=== PATIENT | female | born 1940 | race Caucasian/White ===

== ENCOUNTER 2019-07-14 10:46 | Outpatient (CLI) | payer MEDICARE, SELFPAY ==
--- NOTE | ~2019-07-14 | XR_ITS ---
EXAMINATION: XR lumbar spine 2-3V DATE: 07/14/2019 11:10 INDICATION: Low back pain TECHNIQUE: Anteroposterior and lateral views of the lumbar spine, and cone-down lateral view of the l umbosacral junction were obtained. COMPARISON: None. FINDINGS: There are 12 degrees of lumbar dextroscoliosis. The vertebral body heights and alignment ar e maintained. There is moderate to severe loss of intervertebral disc space height at L1-2 and L2-3. Small degenerative osteophytes project from the anterior endplates of multiple vertebral bodies. Ther e is moderate to severe lower lumbar facet osteoarthritis. Phleboliths are noted in the pelvis. The b owel gas pattern is normal. IMPRESSION: 1. Moderate lumbar spondylosis without acute findings. Reviewed, dictated and finalized at location A. RER CONCRETE PAVING
== END 2019-07-14 10:47 | disposition home or self-care (01) ==
LOC: ANHIMG 10:52
PROVIDERS: PCP Family Medicine; Visit Provider Family Medicine
DX: M54.5 Low back pain (principal); M47.816 Spondylosis without myelopathy or radiculopathy, lumbar region
CPT/HCPCS: 72100

== ENCOUNTER 2020-06-25 07:45 | Outpatient (CLI) | payer MEDICARE, SELFPAY ==
[2020-06-25 07:59] LABS: Basophils Absolute Auto 0.1 K/mm3 (0.0-0.1); Basophils Percent Auto 0.8 % (0.2-1.2); Eosinophils Absolute Auto 0.3 K/mm3 (0-0.3); Eosinophils Percent Auto 4.3 % (0-4.4); Hematocrit 41.2 % (37.0-47.0); Hemoglobin 13.3 g/dL (12.0-15.0); Immature Granulocyte Absolute 0.01 K/mm3 (0.00-0.031); Immature Granulocyte Percent A 0.2 % (0-0.5); Lymphocytes Absolute Auto 1.61 K/mm3 (0.9-3.2); Lymphocytes Percent Auto 26.4 % (18.3-44.2); Mean Corpuscular HGB Conc 32.3 g/dl (32-36); Mean Corpuscular Hemoglobin 30.3 pg (26-34); Mean Corpuscular Volume 93.8 fl (80-100); Mean Platelet Volume 11.2 fl (7.4-10.4); Monocytes Absolute Auto 0.5 K/mm3 (0.1-0.6); Monocytes Percent Auto 8.7 % (2.6-8.5); Neutrophils Absolute Auto 3.6 K/mm3 (1.3-6.7); Neutrophils Percent Auto 59.6 % (45.5-73.1); Platelet Count Result 148 k/mm3 (150-375); Red Blood Count 4.39 M/mm3 (4.2-5.4); Red Cell Distribution Width 12.9 % (11.5-14.5); White Blood Count 6.1 K/mm3 (4.5-10.0)
[2020-06-25 08:55] LABS: LDL Cholesterol Direct 93 mg/dL
[2020-06-25 08:57] LABS: Erythrocyte Sedimentation Rate 16 mm/hr (0-20)
[2020-06-25 09:13] LABS: Alanine Aminotransferase 11 U/L (4-35); Albumin Level 3.9 g/dL (3.5-5.1); Alkaline Phosphatase 71 U/L (38-126); Anion Gap 6 mmol/L (8-16); Aspartate Amino Transferase 21 U/L (14-36); Bilirubin,Total 0.5 mg/dL (0.2-1.3); Blood Urea Nitrogen 19 mg/dL (7-17); Carbon Dioxide 29 mmol/L (22-30); Chloride 107 mmol/L (98-107); Cholesterol 172 mg/dL (0-200); Estimated Glomerular Filt Rate 54; Glucose 100 mg/dL (65-105); HDL Direct 43 mg/dL; Potassium 4.2 mmol/L (3.4-5.0); Sodium 142 mmol/L (137-145); Triglycerides 147 mg/dL (<150)
[2020-06-28 10:35] LABS: Vitamin D 1,25 (OH)2 Total 50 pg/mL (18-72); Vitamin D2 1,25 (OH)2 27 pg/mL; Vitamin D3 1,25 (OH)2 23 pg/mL
[2020-06-29 11:37] LABS: ANA Cascade Screen Negative (Negative)
== END 2020-06-25 07:46 | disposition home or self-care (01) ==
PROVIDERS: PCP Family Medicine; Visit Provider Family Medicine
DX: R76.8 Other specified abnormal immunological findings in serum (principal); E55.9 Vitamin D deficiency, unspecified; I10 Essential (primary) hypertension; E78.2 Mixed hyperlipidemia; M19.90 Unspecified osteoarthritis, unspecified site
CPT/HCPCS: 36415; 80053; 80061; 82652; 85025; 85652; 86038

== ENCOUNTER 2020-07-10 09:33 | Outpatient (CLI) | payer MEDICARE, SELFPAY ==
--- NOTE | ~2020-07-10 | MM_ITS ---
EXAMINATION: MM screening martha BI w elida HISTORY: Screening mammogram TECHNIQUE: Craniocaudal and mediolateral oblique 3-D tomosynthesis images were obtained and synthetic 2-D images were generated. CAD analysis was submitted and interpreted. COMPARISON: No prior mammogram is available for comparison at this institution. BREAST PARENCHYMAL COMPOSITION: There are scattered areas of fibroglandular density. FINDINGS: RIGHT BREAST: A mass is present in the middle third of the upper outer quadrant of the breast. LEFT BREAST: There is a mass in the middle third of the lower breast at the 6:00 location. IMPRESSION: 1. Bilateral breast masses which may represent the patient's baseline however no comparison is curren tly available. 2. Comparison with prior mammograms is necessary. BI-RADS Category 0: Incomplete: Needs comparison with prior mammograms. Reviewed, dictated and finalized at location A. MILL LAB TECHNICIAN IMPRESSION: 1. Bilateral breast masses which may represent the patient's baseline however n o comparison is currently available. 2. Comparison with prior mammograms is necessary. BI-RADS Category 0: Incomplete: Needs comparison with prior mammograms.
== END 2020-07-10 09:34 | disposition home or self-care (01) ==
LOC: ANHIMG 09:35
PROVIDERS: PCP Family Medicine; Visit Provider Family Medicine
DX: Z12.31 Encounter for screening mammogram for malignant neoplasm of breast (principal); R92.8 Other abnormal and inconclusive findings on diagnostic imaging of breast
CPT/HCPCS: 77063; 77067

== ENCOUNTER 2020-08-24 08:15 | Outpatient (RCR) | payer MEDICARE, SELFPAY ==
--- NOTE | 2020-08-24 14:03 | STOPEVAL ---
SPEECH THERAPY EVALUATION AND DISCHARGE: Thank you for referring Jenna Hamm to [facility].? Speech therapy is not warranted at this time but further evaluation via ENT as described below. Please review, sign, date and return this plan of care BRANT. I agree with and certify that the following plan of care is medically necessary. Referring Physician Date Attending Provider: Mary rUibe, JACOBO Mason/Dr [facility] Past Medical History Past Medical History Source of Past Medical History Patient Neurological History Hx Parkinson's Disease Yes: x 1 month Cardiovascular History Hx Hypertension Yes Respiratory History Hx Respiratory Disorders No Significant History Gastrointestinal History Hx Gastrointestinal Disorders No Significant History Genitourinary History Hx Genitourinary Disorders No Significant History Musculoskeletal History Hx Other Musculoskeletal Disorders Yes: lumbar spondylosis Endocrine History Hx Endocrine Disorders No Significant History HEENT History Hx Other HEENT Disorders Yes: hearing loss; bilateral hearing aids Integumentary History Hx Skin Disorders No Significant History Psychosocial History Hx Other Psychiatric Disorders Yes: I went through depression for awhile its been awhile ago; not anymore Evaluation Information Problem Diagnosis speech disturbance Onset 8-9 months ago Cause unknown Additional Evaluation Detail Pt reports that her voice changed gradually; She reports a shakiness to her voice and it feels like there's an obstruction there; pt denies dysphagia. Pt saw ENT Dr Bear. 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 Dario Bruner MD for possible vocal cord injection. Pt states that she did not follow through with that recommendation. 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
== END 2020-08-27 07:57 | disposition home or self-care (01) ==
LOC: ANHST 08:15
PROVIDERS: PCP Family Medicine
DX: R47.89 Other speech disturbances (principal)
CPT/HCPCS: 92524

== ENCOUNTER 2020-08-31 10:38 | Outpatient (CLI) | payer MEDICARE, SELFPAY ==
--- NOTE | ~2020-08-31 | MR_ITS ---
EXAMINATION: MR brain/brain stem wo con DATE: 08/31/2020 11:24 INDICATION: Speech disturbance. TECHNIQUE: Magnetic resonance imaging (MRI) of the brain and brainstem was performed without intraven ous contrast. Sequences included sagittal and axial T1-weighted FSE, axial diffusion-weighted FS EPI, axial T2*-weighted GRE, axial T2-weighted FLAIR Propeller, and axial T2-weighted Propeller. Apparent diffusion coefficient (ADC) maps were created. COMPARISON: None. FINDINGS: There are scattered areas of nonspecific increased T2-weighted signal intensity in the cere bral white matter, which is within normal limits for the patient's age. There is no intracranial hemo rrhage, acute infarction, or abnormal intracranial mass lesion. The ventricles are normal in size. Th ere is mild mucosal thickening in the ethmoid sinuses. The orbits are normal. The mastoid air cells a re normal. IMPRESSION: 1. Normal aging brain. Reviewed, dictated and finalized at location A. IMPRESSION: 1. Normal aging brain.
== END 2020-08-31 10:39 | disposition home or self-care (01) ==
PROVIDERS: PCP Family Medicine
DX: R47.9 Unspecified speech disturbances (principal)
CPT/HCPCS: 70551

== ENCOUNTER 2021-03-01 11:31 | Outpatient (CLI) | payer MEDICARE, SELFPAY ==
[2021-03-01 11:33] LABS: Basophils Percent Auto 0.7 % (0.2-1.2); Eosinophils Absolute Auto 0.1 K/mm3 (0-0.3); Eosinophils Percent Auto 2.1 % (0-4.4); Hematocrit 40.5 % (37.0-47.0); Hemoglobin 13.4 g/dL (12.0-15.0); Immature Granulocyte Absolute 0.02 K/mm3 (0.00-0.031); Immature Granulocyte Percent A 0.3 % (0-0.5); Lymphocytes Absolute Auto 1.21 K/mm3 (0.9-3.2); Lymphocytes Percent Auto 19.7 % (18.3-44.2); Mean Corpuscular HGB Conc 33.1 g/dl (32-36); Mean Corpuscular Hemoglobin 31.6 pg (26-34); Mean Corpuscular Volume 95.5 fl (80-100); Mean Platelet Volume 11.4 fl (7.4-10.4); Monocytes Absolute Auto 0.6 K/mm3 (0.1-0.6); Monocytes Percent Auto 9.1 % (2.6-8.5); Neutrophils Absolute Auto 4.2 K/mm3 (1.3-6.7); Neutrophils Percent Auto 68.1 % (45.5-73.1); Platelet Count Result 156 k/mm3 (150-375); Red Blood Count 4.24 M/mm3 (4.2-5.4); White Blood Count 6.1 K/mm3 (4.5-10.0)
[2021-03-01 12:05] LABS: Alanine Aminotransferase 14 U/L (4-35); Albumin Level 4.5 g/dL (3.5-5.1); Alkaline Phosphatase 67 U/L (38-126); Anion Gap 7 mmol/L (8-16); Aspartate Amino Transferase 26 U/L (14-36); Bilirubin,Total 0.7 mg/dL (0.2-1.3); Blood Urea Nitrogen 16 mg/dL (7-17); Calcium 9.1 mg/dL (8.4-10.2); Carbon Dioxide 27 mmol/L (22-30); Chloride 106 mmol/L (98-107); Estimated Glomerular Filt Rate > 60; Glucose 93 mg/dL (65-110); Potassium 4.2 mmol/L (3.4-5.0); Sodium 140 mmol/L (137-145)
[2021-03-01 12:50] LABS: Add Urine Microscopic? YES; Appearance Urine Clear (Clear); Bilirubin Urine Negative (Negative); Blood Urine Negative (Negative); Color Urine Yellow (Yellow); Glucose Urine UA Negative (Negative); Ketones Urine Negative (Negative); Leukocyte Esterase Ur 1+ LEU/UL (Negative); Nitrate Urine Negative (Negative); Protein Urine Negative (Negative); RBC Urine 0-2 /hpf (0-2); Specific Grav Ur 1.013 (1.001-1.035); Squamous Epithelial Cell Urine Moderate /hpf (Few); Urobilinogen Urine Negative mg/dL (<2.0)
[2021-03-01 13:00] LABS: Erythrocyte Sedimentation Rate 16 mm/hr (0-20)
[2021-03-01 13:29] LABS: Thyroid Stimulating Hormone Reflex 0.719 uIU/mL (0.465-4.68)
[2021-03-04 15:24] LABS: CRP, High Sensitivity 0.8 mg/L (***)
== END 2021-03-01 11:32 | disposition home or self-care (01) ==
PROVIDERS: PCP Family Medicine; Visit Provider Physician Assistant
DX: F41.9 Anxiety disorder, unspecified (principal); I10 Essential (primary) hypertension; M25.50 Pain in unspecified joint
CPT/HCPCS: 36415; 80053; 81001; 84443; 85025; 85652; 86141

== ENCOUNTER → 2021-04-27 01:01 | Outpatient (CLI) | payer MEDICARE, SELFPAY ==
[2021-04-29 14:20] LABS: SARS-CoV-2 RNA PCR Positive
== END ==
PROVIDERS: Nurse Practitioner Gerontology; PCP Family Medicine; Visit Provider Family Medicine
DX: U07.1 COVID-19 (principal)
CPT/HCPCS: C9803; U0003; U0005

== ENCOUNTER 2021-04-30 08:59 | Outpatient (RCR) | payer MEDICARE, SELFPAY ==
[2021-04-30 11:57] VITALS: BP 146/58; PULSE 66; RESP 20; TEMP 36.3; O2SAT 97
[2021-04-30] MEDS: FAMOTIDINE 20 MG TABLET PO (12:02)
[2021-04-30] MEDS: diphenhydrAMINE HCl CAP 25 MG CAPSULE PO (12:02)
[2021-04-30] MEDS: ACETAMINOPHEN 325 MG TABLET 650 MG PO (12:02)
[2021-04-30 13:36] VITALS: BP 152/66
--- NOTE | 2021-05-01 09:29 | PC.NURSE ---
Called Anabell Hansel and she stated she is feeling better and slept well without coughing. She has no other questions at this time.
== END 2021-04-30 17:00 ==
LOC: AMCINF 08:59
PROVIDERS: PCP Nurse Practitioner Gerontology; Visit Provider Internal Medicine Hematology & Oncology
DX: U07.1 COVID-19 (principal); I10 Essential (primary) hypertension; F89 Unspecified disorder of psychological development
CPT/HCPCS: A9270; M0245; Q0245

== ENCOUNTER 2021-05-06 18:02 | Outpatient (CLI) | payer MEDICARE, SELFPAY ==
--- NOTE | ~2021-05-06 | XR_ITS ---
EXAMINATION: XR chest 2V DATE: 05/06/2021 18:22 INDICATION: COVID TECHNIQUE: PA and lateral views of the chest were obtained. COMPARISON: None FINDINGS: Single small focus of subtle peripheral opacity at the lateral left lower lung zone. Remainder of the lungs are clear. No pulmonary edema, pleural effusion or pneumothorax. The cardiomediastinal silhoue tte is normal. Mild thoracic and moderate upper lumbar spondylosis. Small cluster of calcific a cyst at the right axilla likely calcified lymph node IMPRESSION: 1. Single small subtle focus of peripheral airspace opacity at the lateral left lower lung zone which could represent atelectasis or pneumonia. Reviewed, dictated and finalized at location . ULTING HR PROFESSIONAL
== END 2021-05-06 18:03 | disposition home or self-care (01) ==
PROVIDERS: PCP Family Medicine; Visit Provider Nurse Practitioner Gerontology
DX: U07.1 COVID-19 (principal); M47.815 Spondylosis without myelopathy or radiculopathy, thoracolumbar region
CPT/HCPCS: 71046

== ENCOUNTER 2021-05-15 07:31 | Emergency (ER) | payer MEDICARE, SELFPAY ==
[2021-05-15] VITALS (14 sets, daily range): BP systolic 138–176; BP diastolic 62–99; PULSE 54–77; RESP 11–22; TEMP 36.2–36.5; O2SAT 90–98
--- NOTE | ~2021-05-15 | XR_ITS ---
EXAMINATION: XR chest 1V portable DATE: 05/15/2021 08:11 INDICATION: Shortness of breath. TECHNIQUE: A single frontal view of the chest was obtained. COMPARISON: Chest 2 views 05/06/2021 FINDINGS: There is mild atelectasis in left lower lung zone. There is mild scarring at the lung apice s. No pleural effusion or pneumothorax. The heart size is normal. IMPRESSION: 1. Mild atelectasis in left lower lung zone and stable mild scarring at the lung apices. Reviewed, dictated and finalized at location B. ETING AND PUBLIC RELATIONS MANAGER IMPRESSION: 1. Mild atelectasis in left lower lung zone and stable mild scarring at the nichole g apices.
--- NOTE | ~2021-05-15 | CT_ITS ---
EXAMINATION: CTA chest PE protocol DATE: 05/15/2021 10:22 INDICATION: Shortness of breath. TECHNIQUE: Computed tomography angiography (CTA) of the chest was performed with 100 mL Omnipaque-350 intravenous contrast timed to evaluate the pulmonary arteries. Coronal maximum intensity projection 3D-reconstructions were created by the technologist. Automated exposure control and iterative reconst ruction technique were employed. The dose-length product was 228.31 mGy-cm. COMPARISON: None. FINDINGS: There is mild scarring at the lung apices. There is mild atelectasis involving all lobes. N o pleural effusion. The heart size is normal. No pericardial effusion. There is no pulmonary embolus. There is mild thoracic spondylosis. There is severe lumbar spondylosis. IMPRESSION: 1. No pulmonary embolus. Reviewed, dictated and finalized at location B. ILE ENGINEER IMPRESSION: 1. No pulmonary embolus.
--- NOTE | 2021-05-15 07:59 | ED.SOB ---
HPI - SOB/Dyspnea General Chief Complaint: Shortness of Breath/Dyspnea Stated Complaint: COVID PNA, SOB Time Seen by Provider: 05/15/21 07:43 Source: patient Mode of arrival: ambulatory Limitations: no limitations History of Present Illness HPI Narrative: Patient is a 80-year-old female complaining of palpitations accompanied by shortness of breath, started this morning. Patient also stated that she was having chest discomfort when she was having palpitations but none now. Patient states that she recently just got out of quarantine after having Covid 10 days ago. Patient denies any cough, nasal congestion, abdominal pain, nausea, vomiting, diarrhea, fever or chills. Related Data Home Medications Medication Instructions Recorded Confirmed alendronate 70 mg tablet 70 mg PO WEEKLY 12/27/20 04/30/21 amlodipine 5 mg tablet 5 mg PO DAILY 12/27/20 04/30/21 ergocalciferol (vitamin D2) 1,250 1,250 mcg PO WEEKLY 12/27/20 04/30/21 mcg (50,000 unit) capsule Allergies Allergy/AdvReac Type Severity Reaction Status Date / Time No Known Allergies Allergy Verified 04/30/21 13:24 Review of Systems Review of Systems: All systems reviewed & are unremarkable except as noted in HPI and below Constitutional: Constitutional: Denies excessive sweating, Denies headache(s), Denies lethargy, Denies malaise, Denies weakness and Denies weight loss Eyes: Eyes: Denies blurry vision, Denies change in vision and Denies loss of vision ENT: Denies dizziness, Denies ear discharge, Denies headache(s), Denies lip swelling, Denies epistaxis, Denies neck pain, Denies throat swelling and Denies tongue swelling Cardiovascular: Cardiovascular: Reports chest pain, Denies chest pain at rest, Denies chest pain with activity, Denies diaphoresis, Reports rapid heart rate, Denies edema, Denies irregular heart rhythm, Denies lightheadedness and Denies palpitations Respiratory: Respiratory: Denies chest congestion, Reports cough, Denies hemoptysis and Denies dyspnea Gastrointestinal: Gastrointestinal: Denies abdominal pain, Denies melena, Denies hematochezia, Denies diarrhea, Denies nausea, Denies vomiting and Denies hematemesis Musculoskeletal: Musculoskeletal: Denies abnormal gait, Denies deformity, Denies joint swelling, Denies limited range of motion, Denies neck pain and Denies numbness Neurologic: Denies Abnormal speech present, Denies abnormal gait, Denies confusion, Denies dizziness, Denies headache(s), Denies focal weakness, Denies loss of vision, Denies numbness, Denies Other visual disturbances, Denies Sensory deficit (Neuro) and Denies weakness Psychiatric: Psychiatric: Denies confusion, Denies depression, Denies auditory hallucinations, Denies homicidal ideation and Denies suicidal ideation Endocrine: Endocrine: Denies cold intolerance, Denies excessive sweating, Denies fatigue, Denies heat intolerance and Denies palpitations Hematologic/Lymphatic: Hematologic/Lymphatic: Denies easy bleeding and Denies easy bruising Allergic/Immunologic: Allergic/Immunologic: Denies lip swelling, Denies throat swelling and Denies tongue swelling PMFSH Past Medical History Medical History Benign essential HTN Chronic insomnia Hearing loss High cholesterol MDD (major depressive disorder), recurrent episode, moderate Osteoporosis Parkinsonism Positive JORDAN (antinuclear antibody) Spondylosis of lumbar spine Vision loss Family History Family History Father Lung cancer Mother Diabetes mellitus Hypertension Heart disease Grandparent Malignant neoplasm of prostate Grandparent Diabetes mellitus Hypertension Cerebrovascular accident Social History Social History Social History: Smoking status: Never smoker Second hand tobacco smoke exposure: No Alcohol intake: never Substance
[2021-05-15 08:10] LABS: Basophils Percent Auto 0.4 % (0.2-1.2); Eosinophils Absolute Auto 0.1 K/mm3 (0-0.3); Eosinophils Percent Auto 0.7 % (0-4.4); Hematocrit 39.1 % (37.0-47.0); Hemoglobin 13.1 g/dL (12.0-15.0); Immature Granulocyte Absolute 0.03 K/mm3 (0.00-0.031); Immature Granulocyte Percent A 0.4 % (0-0.5); Lymphocytes Absolute Auto 1.29 K/mm3 (0.9-3.2); Lymphocytes Percent Auto 18.3 % (18.3-44.2); Mean Corpuscular HGB Conc 33.5 g/dl (32-36); Mean Corpuscular Hemoglobin 30.9 pg (26-34); Mean Corpuscular Volume 92.2 fl (80-100); Mean Platelet Volume 11.3 fl (7.4-10.4); Monocytes Absolute Auto 0.7 K/mm3 (0.1-0.6); Monocytes Percent Auto 9.5 % (2.6-8.5); Neutrophils Percent Auto 70.7 % (45.5-73.1); Platelet Count Result 153 k/mm3 (150-375); Red Blood Count 4.24 M/mm3 (4.2-5.4); Red Cell Distribution Width 13.5 % (11.5-14.5); White Blood Count 7.1 K/mm3 (4.5-10.0)
[2021-05-15 08:40] LABS: INR 1.1; Prothrombin Time 13.9 Seconds (11.1-14.7)
[2021-05-15 08:41] LABS: Partial Thromboplastin Time 28.4 SECONDS (22.3-36.8)
[2021-05-15 08:43] LABS: D Dimer 2.86 ug/mL (<0.48)
[2021-05-15 08:51] LABS: Alanine Aminotransferase 12 U/L (4-35); Albumin Level 3.7 g/dL (3.5-5.1); Alkaline Phosphatase 78 U/L (38-126); Anion Gap 3 mmol/L (8-16); Aspartate Amino Transferase 20 U/L (14-36); Bilirubin,Total 0.6 mg/dL (0.2-1.3); Blood Urea Nitrogen 18 mg/dL (7-17); Calcium 9.1 mg/dL (8.4-10.2); Carbon Dioxide 27 mmol/L (22-30); Chloride 106 mmol/L (98-107); Estimated Glomerular Filt Rate > 60; Glucose 96 mg/dL (65-110); Potassium 4.6 mmol/L (3.4-5.0); Sodium 136 mmol/L (137-145)
[2021-05-15 09:02] LABS: NT Pro B Type Natriuretic Pept 61 pg/mL (5-100); Troponin I < 0.012 ng/mL (0.000-0.034)
[2021-05-15] MEDS: LACTATED RINGERS 1,000 ML 999 ML IV CONT (10:30)
[2021-05-15 11:06] LABS: Alveolar/Arterial O2 Gradient 25.8 mmHg; Base Excess ABG 1.1 mEq/l (+/-2.0); Carboxyhemoglobin 0.4 % THb (0-2.0); Fractional Inspired Oxygen 21 %; HCO3 ABG 23.1 mEq/l (22.0-26.0); Oxygen Content ABG 17.9 %vol (16.0-22.0); Oxygen Saturation ABG 97.6 % (95.0-100.0); Oxyhemoglobin 96.1 % THb (90.0-100.0); PCO2 ABG 29.4 mmHg (35.0-45.0); PO2 ABG 88.7 mmHg (80.0-100.0); PO2 FiO2 Ratio Arterial Blood 4.22 %; Reduced Hemoglobin 3.5 %THb (0-5.0); Total Hemoglobin 13.2 g/dL (12.0-18.0)
--- NOTE | 2021-05-15 11:08 | PCRCNOTE ---
ABG RESULTS NOT CROSSING OVER. RESULTS HANDED TO DR. ALAN.
[2021-05-15 11:12] LABS: Device ROOM AIR; Site Drawn LEFT BRACHIAL; pH ABG 7.514 (7.350-7.450)
--- NOTE | 2021-05-15 11:36 | ECG_ITS ---
Measurements Intervals [place] Rate: 62 P: 51 FL: 167 QRS: 9 QRSD: 98 T: 27 QT: 424 QTc: 431 Interpretive Statements SINUS RHYTHM LOW QRS VOLTAGE IN PRECORDIAL LEADS CANNOT RULE OUT SEPTAL INFARCT, AGE INDETERMINATE BORDERLINE T WAVE ABNORMALITY- ANTERIOR LEADS BASELINE ARTIFACT- I, II, III, AVR, AVL, AVF, V1-V6 ABNORMAL ECG Electronically Signed On 05-15-2021 13:33:51 AUTOMOTIVE TIRE TECHNICIAN by Adarsh Alvarez D.O.
[2021-05-15 12:22] LABS: Troponin I < 0.012 ng/mL (0.000-0.034)
== END 2021-05-15 13:45 | disposition home or self-care (01) ==
PROVIDERS: Emergency Provider Emergency Medicine; PCP Family Medicine
DX: R00.2 Palpitations (principal); R06.00 Dyspnea, unspecified; I10 Essential (primary) hypertension; E78.00 Pure hypercholesterolemia, unspecified; M81.0 Age-related osteoporosis without current pathological fracture; G20 Parkinson's disease; M47.816 Spondylosis without myelopathy or radiculopathy, lumbar region; R94.31 Abnormal electrocardiogram [ECG] [EKG]; Z86.16 Personal history of COVID-19
CPT/HCPCS: 36415; 36600; 71045; 71275; 80053; 82375; 82805; 83050; 83880; 84484; 85025; 85380; 85610; 85730; 87804; 93005; 96360; 96361; 99284; J7120; Q9967

== ENCOUNTER 2021-09-09 09:45 | Emergency (ER) | payer MEDICARE, SELFPAY ==
--- NOTE | ~2021-09-09 | XR_ITS ---
XR hip LT min 3V w AP pelvis DATE: 09/09/2021 10:26 INDICATION: Generalized left hip pain for 2 days. No known injury. TECHNIQUE: AP pelvis. AP, lateral and crosstable lateral views of left hip COMPARISON: None FINDINGS: Dextroscoliosis of the lumbar spine. There is a transitional lumbosacral vertebra with sacr alization and pseudoarthrosis on the left. The pubic symphysis and sacroiliac joints are intact. No pelvic fracture or bone destruction is detected. Hip joint spaces are symmetric and relatively preserved. No fracture or dislocation, avascular necrosis or bone destruction of the left hip is detected. 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 IMPRESSION: Transitional lumbosacral vertebra with sacralization pseudoarthrosi s on the left No significant abnormality of left hip
[2021-09-09 09:58] VITALS: BP 165/58; PULSE 63; RESP 16; TEMP 36.3; O2SAT 99
--- NOTE | 2021-09-09 11:03 | ED.LOWEXIN ---
HPI - Extremity Injury (Lower) General Chief Complaint: Extremity Injury, Lower Stated Complaint: left hip pain Time Seen by Provider: 09/09/21 10:46 History of Present Illness HPI Narrative: 81-year-old female here with atraumatic left hip pain for the past 2 days. Patient the pain came on gradually, is present in her left hip/low back area, and will radiate down her back of her thigh. States it is sharp and shooting in nature and worse with certain positions, and will occasionally radiate down her posterior leg. She has been weight bearing with some pain. Denies any falls or trauma to the hip. Denies incontinence or retention of her bowel or bladder, paresthesias of her legs, weakness, fevers, falls, head injury. Has a history of left hip arthritis, and states this feels somewhat similar. She received intra-articular cortisone injections in the past with good result; but is unsure who her orthopedic doctor is. Related Data Home Medications Medication Instructions Recorded Confirmed alendronate 70 mg tablet 70 mg PO WEEKLY 12/27/20 04/30/21 amlodipine 5 mg tablet 5 mg PO DAILY 12/27/20 04/30/21 Allergies Allergy/AdvReac Type Severity Reaction Status Date / Time No Known Allergies Allergy Verified 04/30/21 13:24 Review of Systems Review of Systems: Gen.: Denies fevers or chills Eyes: Denies eye pain or visual change ENT: Denies congestion Respiratory: Denies shortness of breath or cough CV: Denies chest pain or palpitations GI: Denies abdominal pain nausea, emesis or diarrhea denies burning, urgency, frequency or hematuria Musculoskeletal: Reports left hip and low back pain. Neuro: Denies numbness, tingling, weakness or focal weakness Skin: Denies rash Except as documented, all other systems reviewed and negative All systems reviewed & are unremarkable except as noted in HPI and below [facility] Past Medical History Medical History Benign essential HTN Chronic insomnia Hearing loss High cholesterol MDD (major depressive disorder), recurrent episode, moderate Osteoporosis Parkinsonism Positive JORDAN (antinuclear antibody) Spondylosis of lumbar spine Vision loss Family History Family History Father Lung cancer Mother Diabetes mellitus Hypertension Heart disease Grandparent Malignant neoplasm of prostate Grandparent Diabetes mellitus Hypertension Cerebrovascular accident Social History Social History Social History: Smoking status: Never smoker Second hand tobacco smoke exposure: No Alcohol intake: never Substance use: never Substance use type: does not use Gender identity (if verbalized by the patient): Female Sexual Orientation (if Verbalized by the Patient): Straight or Heterosexual Spiritual care concerns: No Exam Narrative: APPEARANCE: No acute distress, nontoxic, resting in bed EYES: EOMI HEENT: Normocephalic, atraumatic, OMM RESPIRATORY: No respiratory distress Clear to auscultation bilaterally with no rhonchi wheezing or rales. CARDIOVASCULAR: Regular rate and rhythm without murmurs rubs or gallops. ABDOMINAL: Soft, nontender, nondistended, no rebound or guarding MUSCULOSKELETAl: Left hip without obvious swelling or deformity. No bony tenderness to palpation. Full range of motion of left hip, with pain especially noted with internal rotation. Straight leg raise positive on the left. No midline tenderness along C,T or L-spine. NEURO: Awake and alert. Following commands, speech normal, no focal deficits SKIN: Warm, dry. No rashes lesions or abrasions PSYCHIATRIC: Normal affect/mood Course Vital Signs Vital signs: Vital Signs Temperature 97.4 F L 09/09/21 09:58 Pulse Rate 63 09/09/21 09:58 Respiratory Rate 16 09/09/21 09:58 Blood Pressure 165/58 H 09/09/21 09:58 Puls
[2021-09-09] MEDS: ACETAMINOPHEN 500 MG TABLET 1000 MG PO (11:29)
[2021-09-09] MEDS: IBUPROFEN 600 MG TABLET PO (11:30)
[2021-09-09] MEDS: LIDOCAINE 5% PATCH 1 PATCH TRANSDERM (11:31)
[2021-09-09 12:15] VITALS: BP 166/55; PULSE 65; RESP 16; O2SAT 99
== END 2021-09-09 12:59 | disposition home or self-care (01) ==
PROVIDERS: Emergency Provider Emergency Medicine; PCP Family Medicine
DX: M54.32 Sciatica, left side (principal); I10 Essential (primary) hypertension; E78.00 Pure hypercholesterolemia, unspecified; G20 Parkinson's disease; M81.0 Age-related osteoporosis without current pathological fracture
CPT/HCPCS: 73502; 99283; A9270

== ENCOUNTER 2021-11-20 09:20 | Outpatient (CLI) | payer MEDICARE, SELFPAY ==
--- NOTE | ~2021-11-20 | MM_ITS ---
EXAMINATION: MM screening martha BI w elida HISTORY: Screening TECHNIQUE: Craniocaudal and mediolateral oblique 3-D tomosynthesis images were obtained and synthetic 2-D images were generated. CAD analysis was submitted and interpreted. COMPARISON: Comparison to multiple prior studies sequentially, with oldest reviewed study dated 07/07. BREAST PARENCHYMAL COMPOSITION: Breast composed of scattered areas of fibroglandular density FINDINGS: Bilateral breast masses are stable without interval change. No new masses, calcifications o r architectural distortion in either breast to suggest malignancy. There is no evidence of suspicious mass, calcification, or architectural distortion to suggest malignancy in either breast. There has b een no suspicious interval change. IMPRESSION: 1. No mammographic evidence of malignancy. 2. Recommend routine screening mammography in one year. BI-RADS Category 2: Benign finding(s). Reviewed, dictated and finalized at location A.
== END 2021-11-20 09:21 | disposition home or self-care (01) ==
LOC: ANHIMG 09:23
PROVIDERS: PCP Family Medicine; Visit Provider Family Medicine
DX: Z12.31 Encounter for screening mammogram for malignant neoplasm of breast (principal)
CPT/HCPCS: 77063; 77067

== ENCOUNTER 2022-03-28 07:31 | Outpatient (CLI) | payer MEDICARE, SELFPAY ==
[2022-03-28 07:49] LABS: Basophils Percent Auto 0.8 % (0.2-1.2); Eosinophils Absolute Auto 0.2 K/mm3 (0-0.3); Eosinophils Percent Auto 3.5 % (0-4.4); Hematocrit 42.2 % (37.0-47.0); Hemoglobin 13.7 g/dL (12.0-15.0); Immature Granulocyte Absolute 0.01 K/mm3 (0.00-0.031); Immature Granulocyte Percent A 0.2 % (0-0.5); Lymphocytes Absolute Auto 1.49 K/mm3 (0.9-3.2); Lymphocytes Percent Auto 30.8 % (18.3-44.2); Mean Corpuscular HGB Conc 32.5 g/dl (32-36); Mean Corpuscular Hemoglobin 30.4 pg (26-34); Mean Corpuscular Volume 93.6 fl (80-100); Mean Platelet Volume 10.6 fl (7.4-10.4); Monocytes Absolute Auto 0.5 K/mm3 (0.1-0.6); Monocytes Percent Auto 10.4 % (2.6-8.5); Neutrophils Absolute Auto 2.6 K/mm3 (1.3-6.7); Neutrophils Percent Auto 54.3 % (45.5-73.1); Platelet Count Result 151 k/mm3 (150-375); Red Blood Count 4.51 M/mm3 (4.2-5.4); Red Cell Distribution Width 13.9 % (11.5-14.5); White Blood Count 4.8 K/mm3 (4.5-10.0)
[2022-03-28 08:06] LABS: Alanine Aminotransferase 13 U/L (6-35); Albumin Level 4.2 g/dL (3.5-5.1); Alkaline Phosphatase 63 U/L (38-126); Anion Gap 9 mmol/L (8-16); Aspartate Amino Transferase 23 U/L (14-36); Bilirubin,Total 0.6 mg/dL (0.2-1.3); Blood Urea Nitrogen 19 mg/dL (7-17); Calcium 8.6 mg/dL (8.4-10.2); Carbon Dioxide 28 mmol/L (22-30); Chloride 104 mmol/L (98-107); Cholesterol 274 mg/dL (0-200); Estimated Glomerular Filt Rate > 60; Glucose 88 mg/dL (65-110); HDL Direct 54 mg/dL; Potassium 3.9 mmol/L (3.4-5.0); Sodium 141 mmol/L (137-145); Triglycerides 101 mg/dL (<150); Uric Acid 3.9 mg/dL (2.5-7.5)
[2022-03-28 08:18] LABS: LDL Cholesterol Direct 159 mg/dL
[2022-04-01 11:51] LABS: Anti Cyclic Citrullinated Pept <16 Units (<20)
== END 2022-03-28 07:32 | disposition home or self-care (01) ==
PROVIDERS: PCP Family Medicine; Visit Provider Family Medicine
DX: E78.2 Mixed hyperlipidemia (principal); Z82.61 Family history of arthritis; I10 Essential (primary) hypertension; E79.0 Hyperuricemia without signs of inflammatory arthritis and tophaceous disease
CPT/HCPCS: 36415; 80053; 80061; 84550; 85025; 86200

== ENCOUNTER 2022-04-04 12:12 | Outpatient (CLI) | payer MEDICARE, SELFPAY ==
--- NOTE | ~2022-04-04 | US_ITS ---
EXAMINATION: US carotid duplex BI DATE: 04/04/2022 13:35 INDICATION: Circulatory issues. Vertigo. TECHNIQUE: Grayscale, color Doppler, and pulsed Doppler images of the cervical carotid arteries were obtained. The degree of vessel stenosis is placed in one of the following categories: normal, <50%, 5 0-69%, >=70% but less than near-occlusion, near-occlusion, or total occlusion. Note that percent sten osis relative to normal distal artery lumen diameter is indirectly measured from velocity measurement s as described by Quinn, et al. Radiology 2003; 229:340-346. Notes: Normal: Peak systolic velocity <125 centimeters/sec and no plaque <50%. Peak systolic velocity <125 ( EDV <40; ICA/CCA PSV ratio <2.0; used these factors only a tandem lesions or low cardiac output or co ntralateral disease) 50-69 %: PSV 125-230 (EDV 40-100; ratio 2-4) >= 70% but less than near occlusion: PSV greater than 230 (EDV > 100; ratio> 4.0) Near Occlusion: PSV that is variable; markedly narrowed lumen Occlusion: Absent flow on color/spectral Doppler and no lumen on collado scale. COMPARISON: None. FINDINGS: RIGHT: The right common carotid artery (CCA) peak systolic velocity (PSV) is 92 cm/s. The right internal car otid artery (ICA) PSV is 78 cm/s. The right ICA end-diastolic velocity (EDV) is 16 cm/s. The right IC A/CCA PSV ratio is 0.8. The external carotid artery (ECA) PSV is 94 cm/s. There is antegrade flow in the right vertebral artery. LEFT: The left CCA PSV is 108 cm/s. The left ICA PSV is 78 cm/s. The left ICA EDV is 19 cm/s. The left ICA/ CCA PSV ratio is 0.7. The ECA PSV is 103 cm/s. There is antegrade flow in the left vertebral artery. IMPRESSION: 1. Less than 50% stenosis in the right internal carotid artery by sonographic criteria. 2. Less than 50% stenosis in the left internal carotid artery by sonographic criteria. Reviewed, dictated and finalized at location A. IER IMPRESSION: 1. Less than 50% stenosis in the right internal carotid artery by sonographic amber valdez. 2. Less than 50% stenosis in the left internal carotid artery by sonographic elliot kohler.
== END 2022-04-04 12:13 | disposition home or self-care (01) ==
PROVIDERS: PCP Family Medicine; Visit Provider Family Medicine
DX: R09.89 Other specified symptoms and signs involving the circulatory and respiratory systems (principal); I65.23 Occlusion and stenosis of bilateral carotid arteries
CPT/HCPCS: 93880

== ENCOUNTER 2022-09-16 09:31 | Outpatient (CLI) | payer MEDICARE, SELFPAY ==
--- NOTE | ~2022-09-16 | DEXA_ITS ---
Bone Density Report Name: HEATH JOHNSTON Age: 82 Sex: Female Ethnicity: White Date of : 1940 Indication: postmenopausal; screening for osteoporosis; height loss; Referring Provider: JEREMY RODRIGUEZ Study: Bone densitometry was performed. Exam Date: September 16, 2022 Accession number: [id number] Bone Density: Region BMD T-score Z-score Classification AP Spine(L3, L4) 1.183 0.7 3.6 Normal Femoral Neck (Left) 0.628 -2.0 0.4 Osteopenia Total Hip (Left) 0.733 -1.7 0.4 Osteopenia Femoral Neck (Right) 0.679 -1.5 0.8 Osteopenia Total Hip (Right) 0.765 -1.5 0.7 Osteopenia Total Hip Mean 0.749 -1.6 0.6 Osteopenia World Health Organization criteria for BMD impression classify patients as: Normal (T-score at or above -1.0), Osteopenia (T-score between -1.0 and -2.5), or Osteoporosis (T-score at or below -2.5). 10-year Fracture Risk(1): Major Osteoporotic Fracture 15% Hip Fracture 4.3% Reported Risk Factors: [place] (), Neck BMD=0.628, BMI=29.4 (1) FRAX(R) Version 3.08. Fracture probability calculated for an untreated patient. Fracture probability may be lower if the patient has received treatment. Clinical Information Provided by Patient: Has used the following medications: Vitamin D, Calcium Patient maximum height was 63.5 Menopause Age: 51 No regular weight bearing exercise Drinks caffeinated beverages Onset of menses at age 15 Number of children 4 Impression: The patient has low bone mass, based on the Left Femoral Neck T-score. The patient has an estimated ten-year risk of hip fracture of 4.3% and an estimated ten-year risk of major fracture of 15%, based on the WHO FRAX algorithm. Discussion: BONE DENSITY IS LOW AT ONE OR MORE SKELETAL SITES. THE PATIENT'S BMD AND CLINICAL RISK FACTORS CONTRIBUTE TO THIS PATIENT'S INCREASED RISK OF FRACTURE. This patient's lowest T-score is low at one or more skeletal sites. It meets the World Health Organization's (WHO) criteria for ?low bone mass? (T-score between -1.0 and -2.5). The patient's 10-year risk of hip fracture as calculated by FRAX exceeds the threshold where pharmacological therapy is recommended by the National Osteoporosis Foundation (NOF). However, all treatment decisions require clinical judgment and consideration of individual patient factors, including patient preferences, comorbidities, previous drug use, risk factors not captured in the FRAX model (e.g., frailty, falls, vitamin D deficiency, increased bone turnover, interval significant decline in bone density) and possible under or overestimation of fracture risk by FRAX. The patient should follow a healthful lifestyle (good nutrition with adequate calcium and vitamin D, and appropriate weight-bearing exercise). Follow-Up: Consider a repeat BMD and Verteb
== END 2022-09-16 09:32 | disposition home or self-care (01) ==
PROVIDERS: PCP Family Medicine; Visit Provider Nurse Practitioner Gerontology
DX: Z78.0 Asymptomatic menopausal state (principal); M85.852 Other specified disorders of bone density and structure, left thigh; M85.851 Other specified disorders of bone density and structure, right thigh
CPT/HCPCS: 77080

== ENCOUNTER 2022-10-21 10:26 | Outpatient (CLI) | payer MEDICARE, SELFPAY ==
[2022-10-21 11:12] LABS: Basophils Absolute Auto 0.1 K/mm3 (0.0-0.1); Basophils Percent Auto 0.8 % (0.2-1.2); Eosinophils Absolute Auto 0.3 K/mm3 (0-0.3); Eosinophils Percent Auto 4.2 % (0-4.4); Hematocrit 39.8 % (37.0-47.0); Immature Granulocyte Absolute 0.02 K/mm3 (0.00-0.031); Immature Granulocyte Percent A 0.3 % (0-0.5); Lymphocytes Absolute Auto 1.24 K/mm3 (0.9-3.2); Mean Corpuscular HGB Conc 32.7 g/dl (32-36); Mean Corpuscular Hemoglobin 30.8 pg (26-34); Mean Corpuscular Volume 94.3 fl (80-100); Mean Platelet Volume 11.5 fl (7.4-10.4); Monocytes Absolute Auto 0.6 K/mm3 (0.1-0.6); Monocytes Percent Auto 10.2 % (2.6-8.5); Neutrophils Absolute Auto 3.7 K/mm3 (1.3-6.7); Neutrophils Percent Auto 63.5 % (45.5-73.1); Platelet Count Result 142 k/mm3 (150-375); Red Blood Count 4.22 M/mm3 (4.2-5.4); Red Cell Distribution Width 13.4 % (11.5-14.5); White Blood Count 5.9 K/mm3 (4.5-10.0)
[2022-10-21 14:23] LABS: Alanine Aminotransferase 29 U/L (6-35); Alkaline Phosphatase 73 U/L (38-126); Anion Gap 3 mmol/L (8-16); Aspartate Amino Transferase 33 U/L (14-36); Bilirubin,Total 0.7 mg/dL (0.2-1.3); Blood Urea Nitrogen 19 mg/dL (7-17); Calcium 9.1 mg/dL (8.4-10.2); Carbon Dioxide 30 mmol/L (22-30); Chloride 106 mmol/L (98-107); Estimated Glomerular Filt Rate > 60; Glucose 86 mg/dL (65-110); Potassium 4.2 mmol/L (3.4-5.0); Sodium 139 mmol/L (137-145)
[2022-10-25 08:05] LABS: Vitamin D 1,25 (OH)2 Total 47 pg/mL (18-72); Vitamin D2 1,25 (OH)2 28 pg/mL; Vitamin D3 1,25 (OH)2 19 pg/mL
== END 2022-10-21 10:27 | disposition home or self-care (01) ==
PROVIDERS: PCP Family Medicine; Visit Provider Nurse Practitioner Gerontology
DX: E55.9 Vitamin D deficiency, unspecified (principal); I10 Essential (primary) hypertension; R42 Dizziness and giddiness; R60.9 Edema, unspecified
CPT/HCPCS: 36415; 80053; 82607; 82652; 84443; 85025

== ENCOUNTER 2023-02-03 08:50 | Outpatient (CLI) | payer MEDICARE, SELFPAY ==
--- NOTE | ~2023-02-03 | NM_ITS ---
EXAMINATION: NM harish stress w perfusion DATE: 02/03/2023 11:49 INDICATION: Chest pain. TECHNIQUE: Rest images were obtained following intravenous administration of 10.0 mCi Tc99m tetrofosm in (Myoview). The patient was infused intravenously with Lexiscan (Regadenoson). Then, 30.2 mCi Tc99m tetrofosmin (Myoview) was administered intravenously, and stress images were obtained. Imaging initi ally obtained in the supine position with repeat post stress images obtained in the prone position. D marielle was reconstructed into short axis and horizontal and vertical long axis SPECT images. Gated SPECT images were also obtained. COMPARISON: None. FINDINGS: There are scattered regions of likely artifactual mild decreased activity along portions of the septal, anterior and lateral chu on the rest and stress images obtained in the supine position which normalizes on the prone post stress imaging. There is no definite reversible or fixed perfusio n abnormality on the prone post stress imaging to suggest ischemia or infarction. There is normal le ft ventricular chamber size, wall motion and ejection fraction. Left ventricular ejection fraction m easures 53%. IMPRESSION: 1. Normal myocardial perfusion at rest and during stress. 2. Left ventricular ejection fraction measuring 53%. Reviewed, dictated and finalized at location A.
--- NOTE | 2023-02-03 08:57 | ECHO_ITS ---
Patient Info Name: Jenna Hamm Age: 82 years : 1940 Gender: Female Ht: 63 in Wt: 159 lbs BSA: 1.81 m2 HR: 66 bpm BP: 184 / 91 mmHg Heart Rhythm: Sinus Rhythm Technical Quality: Fair Exam Date: 02/03/2023 9:08 AM Exam Location: [facility] Pulmonary Patient Status: Outpatient Admit Date: 02/03/2023 Staff Ordering Physician: Adarsh Alvarez DO Tie Inspector: Sayda Andrews RDCS Attending Provider: Adarsh Alvarez DO Referring Physician: Antonio LEE; Exam Type: CA echo doppler color flow Study Info Indications R06.09 - Other forms of dyspnea Complete two-dimensional, color flow and Doppler transthoracic echocardiogram is performed. Summary 1. Complete two-dimensional, color flow and Doppler transthoracic echocardiogram is performed. 2. Left ventricular chamber dimension is normal. 3. Left ventricular systolic function is normal, estimated at 60-65%. 4. The left ventricular diastolic function is grade I diastolic dysfunction. 5. E/e' 18 is elevated. 6. Left atrial chamber dimension is mildly enlarged. 7. There is mild aortic valve sclerosis. 8. There is mild aortic valve regurgitation. 9. There is trace mitral valve regurgitation. 10. Mild pulmonary hypertension, estimated pulmonary arterial systolic pressure is 41 mmHg. 11. There is small circumferential pericardial effusion. Left Ventricle E/e' 18 is elevated. Left ventricular chamber dimension is normal. Left ventricular systolic function is normal, estimated at 60-65%. The left ventricular diastolic function is grade I diastolic dysfunction. Right Ventricle Right ventricular systolic function is normal and with normal TAPSE 1.8 cm. Right ventricular chamber dimension is normal. Left Atria Left atrial chamber dimension is mildly enlarged. Right Atria Right atrial chamber dimension is normal. Aortic Valve The aortic valve is trileaflet. There is mild aortic valve sclerosis. There is no aortic valve stenosis. There is mild aortic valve regurgitation. Pulmonic Valve There is no pulmonic regurgitation. Mitral Valve There is no mitral valve stenosis. There is trace mitral valve regurgitation. Tricuspid Valve There is no tricuspid valve regurgitation. Mild pulmonary hypertension, estimated pulmonary arterial systolic pressure is 41 mmHg. Pericardium/Pleural No cardiac tamponade. There is small circumferential pericardial effusion. Inferior Vena Cava Normal inferior vena cava with >50% collapse upon inspiration consistent with normal right atrial pressure, 5 mmHg. Aorta The aortic root size at the sinus of Valsalva is normal. Left Ventricular Outflow Tract Name Value Normal LVOT 2D LVOT Diameter 2.0 cm LVOT Doppler LVOT Peak Gradient 3 mmHg LVOT Mean Gradient 2 mmHg LVOT VTI 22 cm LVOT VTI/AV VTI Ratio 0.7 LVOT Stroke Volume 66 ml LVOT CO 3.9 l/min LVOT CI 2.2 l/min/m2 Pulmonic Valve Name Value
--- NOTE | 2023-02-03 08:57 | EST_ITS ---
Patient Info Name: Jenna Hamm Age: 82 years : 1940 Gender: Female Ht: 63 in Wt: 159 lbs BSA: 1.81 m2 HR: 63 bpm BP: 208 / 87 mmHg Heart Rhythm: Sinus Rhythm Exam Date: 02/03/2023 10:45 AM Exam Location: [facility] Stress Patient Status: Outpatient Admit Date: 02/03/2023 Staff Ordering Physician: Adarsh Alvarez DO Attending Provider: Adarsh Alvarez DO Exercise Technologist: [place] Martínez CT Exercise Physician: Adarsh Alvarez DO Exam Type: CA stress harish w NM Study Info Indications R06.09 - Other forms of dyspnea A regadenoson stress test was performed. Summary 1. 1. Negative lexiscan stress test for ischemic ST changes by ECG criteria. 2. 2. Baseline hypertension. 3. 3. Nuclear scan to follow and will be reported separately. Please correlate with it. 4. 4. Patient informed of the above results. Protocol: Lexiscan Stress ECG Details Stage: REST Duration (min): 2 min : 5 sec HR (bpm): 64 SBP (mmHg): 208 DBP (mmHg): 87 Stage: REST Duration (min): 7 min : 33 sec HR (bpm): 61 SBP (mmHg): 208 DBP (mmHg): 82 Stage: STAGE 1 Duration (min): 1 min : 0 sec HR (bpm): 83 SBP (mmHg): 208 DBP (mmHg): 82 Stage: RECOVERY Duration (min): 1 min : 0 sec HR (bpm): 95 SBP (mmHg): 207 DBP (mmHg): 58 Stage: RECOVERY Duration (min): 2 min : 0 sec HR (bpm): 88 SBP (mmHg): 207 DBP (mmHg): 58 Stage: RECOVERY Duration (min): 2 min : 49 sec HR (bpm): 86 SBP (mmHg): 193 DBP (mmHg): 60 Rest HR: 61 bpm Peak HR: 97 bpm Rest Sys BP: 208 mmHg Peak Sys BP: 207 mmHg Max Pred HR: 139 bpm % Max Pred HR: 70 % Target HR: 118 bpm Max RPP: 20,079 bpm*mmHg Termination Reason: Completed protocol Cardiac Symptoms: Shortness of breath Total Time: 1 min : 0 sec Rest Glover BP: 82 mmHg Peak Glover BP: 58 mmHg Total Dose: 0.4 mg Resting ECG Sinus rhythm, low voltage in diffuse leads. Stress ECG No ST changes. Arrhythmias None. Report Signatures
== END 2023-02-03 08:51 | disposition home or self-care (01) ==
LOC: ANHCARD 08:52
PROVIDERS: PCP Family Medicine; Visit Provider Internal Medicine Cardiovascular Disease
DX: R07.9 Chest pain, unspecified (principal); R06.09 Other forms of dyspnea; I27.20 Pulmonary hypertension, unspecified; I31.39 Other pericardial effusion (noninflammatory); I08.0 Rheumatic disorders of both mitral and aortic valves
CPT/HCPCS: 78452; 93017; 93306; A9502; J2785

== ENCOUNTER 2023-06-18 09:52 | Outpatient (CLI) | payer MEDICARE, SELFPAY ==
[2023-06-18 11:23] LABS: Erythrocyte Sedimentation Rate 19 mm/hr (0-20)
== END 2023-06-18 09:53 | disposition home or self-care (01) ==
LOC: ANHLAB 09:53
PROVIDERS: PCP Family Medicine; Visit Provider Nurse Practitioner Gerontology
DX: R51.9 Headache, unspecified (principal)
CPT/HCPCS: 36415; 85652

== ENCOUNTER 2023-06-25 13:03 | Outpatient (CLI) | payer MEDICARE, SELFPAY ==
--- NOTE | ~2023-06-25 | XR_ITS ---
MODIFIED ESOPHAGRAM HISTORY: Cough. Fullness in the throat TECHNIQUE: Modified barium esophagram was performed on 06/25/2023. I administered fluoroscopy and perfo rmed the exam with speech pathologist. Patient was seated for lateral fluoroscopic imaging for inges tion of thin liquids, pudding, solids and quantified amounts, followed by thin liquids in uncontrolle d amounts. This was recorded on tape. A single fluoroscopic spot image was also recorded. The DAP for this procedure was 0.823 Gycm2. The amount of fluoroscopy time used during this procedure was 1.3 mi nutes. FINDINGS: Oral stage: Adequate function. Pharyngeal stage: Adequate function. Cervical/esophageal stage: Adequate function. IMPRESSION: Patient tolerated regular consistency oral feedings in the upright position. Please deanna elate with speech pathologist findings and specific feeding recommendations. Reviewed, dictated and finalized at location A. OPERATOR IMPRESSION: Patient tolerated regular consistency oral feedings in the upright position. Please correlate with speech pathologist findings and specific feedi ng recommendations.
--- NOTE | 2023-06-25 14:50 | REHSTMBS ---
Assessment and note entered by Yahaira Dunn, PIZZA BAKER Modified Barium Swallow Evaluation Feeding Type Recommended Oral Food Consistency Regular, Level 7 Liquid Consistency Thin (0) ST Clinical Summary MODIFIED BARIUM SWALLOW STUDY This patient was seen for a Modified Barium Swallow at the request of her physician. She reports that she has exhibited tremors in her hands, voice, and head for about one year. She denies a history of difficulty swallowing or becoming choked or strangled when eating or drinking however she did report that she always feels that something is in my throat. She also admitted to sinus issues and drainage causing her to clear her throat and that she had coughed for a long time. She denied gastroesophageal reflux contributing to her symptoms. Patient was viewed in the lateral position to the level of C5/C6. Patient was first presented with uncontrolled thin liquid per cup, and then per straw, pudding mixed with semi-solid contrast medium, and then fruit cocktail pieces and evangelist cracker pieces, both coated with the semi-solid contrast medium. She exhibited quick swallows with only one episode of trace coating of the epiglottis after a secondary swallow of uncontrolled thin liquid per straw however material did not remain on the epiglottis and no true penetration into the airway was noted. Results indicate this patient's swallowing skills are within normal limits. Patient may remain on a Regular Diet with Regular Liquids at this time. She is referred back to her physician for further assessment of the concerns. Thank you for this referral.
== END 2023-06-25 13:04 | disposition home or self-care (01) ==
PROVIDERS: PCP Family Medicine; Visit Provider Internal Medicine Pulmonary Disease
DX: R25.9 Unspecified abnormal involuntary movements (principal); R05.9 Cough, unspecified
CPT/HCPCS: 92611

== ENCOUNTER 2023-07-01 09:52 | Outpatient (CLI) | payer MEDICARE, SELFPAY ==
--- NOTE | 2023-07-01 17:06 | WPDPFTINT ---
PFT Procedure Performed PFT Procedure Performed Spirometry with Pre/Post Bronchodilator Plethysmography (Lung Vol) Diffusing Cap (DLCO) Flow Vol Loop PFT Interpretation Lung volumes were measured with the body plethysmography method. Lung volumes are unremarkable. Spirometry showed normal expiratory flow rates and a normal FEV1 to FVC ratio 77%. Following administration of a bronchodilator there was no significant increase in expiratory flow rates. Lung diffusion capacity is within the normal range at 67% predicted. The flow volume loop is unremarkable. Impression: Spirometry, lung volumes, and lung diffusion capacity all within the normal range.
--- NOTE | 2023-07-01 17:08 | WPDSIXMINUTE ---
Six Minute Walk Procedure Procedure Performed Pulmonary Stress Test (6 min walk) Six Minute Walk Six Minute Walk: This 6 minute walk test was carried out with the patient breathing ambient air. The pre walk baseline oxyhemoglobin saturation was 94%. The patient walked 335 m with no stops during testing. During the walk the oxyhemoglobin saturation remained in the range of 92% to 96%. Impression: No evidence of oxyhemoglobin desaturation on this testing.
== END 2023-07-01 09:53 | disposition home or self-care (01) ==
LOC: ANHPFT 09:52
PROVIDERS: PCP Family Medicine; Visit Provider Internal Medicine Pulmonary Disease
DX: R06.02 Shortness of breath (principal); Z87.891 Personal history of nicotine dependence
CPT/HCPCS: 94060; 94618; 94726; 94729

== ENCOUNTER 2023-07-16 09:32 | Outpatient (CLI) | payer MEDICARE, SELFPAY ==
--- NOTE | ~2023-07-16 | XR_ITS ---
Clinical Indication: Shortness of breath PA and lateral views of the chest: Comparison: 05/15/2021 Findings: The lungs are clear, without evidence of focal consolidation or pleural effusion. Possible COPD. Cardiomediastinal silhouette is within normal limits. Bones and soft tissues are unremarkable. Impression: Clear lungs. Possible COPD. Reviewed, dictated and finalized at location . [employer] FIGHT[employer] Impression: Clear lungs. Possible COPD.
== END 2023-07-16 09:33 | disposition home or self-care (01) ==
PROVIDERS: PCP Family Medicine; Visit Provider Internal Medicine Pulmonary Disease
DX: R05.9 Cough, unspecified (principal); R06.02 Shortness of breath
CPT/HCPCS: 71046

== ENCOUNTER 2023-08-04 08:17 | Outpatient (CLI) | payer MEDICARE, SELFPAY ==
--- NOTE | ~2023-08-04 | MR_ITS ---
MRA HEAD History: Headache Technique: 3D time of flight MRA of the head is performed. Findings: The right and left distal vertebral arteries and the basilar and posterior cerebral arterie s are normal. Right and left distal internal carotid arteries and anterior and middle cerebral arteri es are normal. There is no aneurysm, stenosis, or occlusion. Impression: No occlusion, stenosis, or aneurysm. Reviewed, dictated and finalized at location . Impression: No occlusion, stenosis, or aneurysm.
== END 2023-08-04 08:18 | disposition home or self-care (01) ==
PROVIDERS: PCP Family Medicine; Visit Provider Nurse Practitioner Gerontology
DX: I67.89 Other cerebrovascular disease (principal); R51.9 Headache, unspecified
CPT/HCPCS: 70544

== ENCOUNTER 2024-02-04 08:41 | Outpatient (CLI) | payer MEDICARE, SELFPAY ==
[2024-02-04 09:23] LABS: Basophils Percent Auto 0.8 % (0.2-1.2); Eosinophils Absolute Auto 0.2 K/mm3 (0-0.3); Eosinophils Percent Auto 3.6 % (0-4.4); Hematocrit 40.8 % (37.0-47.0); Hemoglobin 13.2 g/dL (12.0-15.0); Immature Granulocyte Absolute 0.01 K/mm3 (0.00-0.031); Immature Granulocyte Percent A 0.2 % (0-0.5); Immature Platelet Fraction Pct 4.6 % (0.9-11.2); Lymphocytes Absolute Auto 1.23 K/mm3 (0.9-3.2); Lymphocytes Percent Auto 25.9 % (18.3-44.2); Mean Corpuscular HGB Conc 32.4 g/dl (32-36); Mean Corpuscular Hemoglobin 31.4 pg (26-34); Mean Corpuscular Volume 96.9 fl (80-100); Mean Platelet Volume 11.2 fl (7.4-10.4); Monocytes Absolute Auto 0.4 K/mm3 (0.1-0.6); Monocytes Percent Auto 9.1 % (2.6-8.5); Neutrophils Absolute Auto 2.9 K/mm3 (1.3-6.7); Neutrophils Percent Auto 60.4 % (45.5-73.1); Platelet Count Result 128 k/mm3 (150-375); Red Blood Count 4.21 M/mm3 (4.2-5.4); Red Cell Distribution Width 13.7 % (11.5-14.5); White Blood Count 4.8 K/mm3 (4.5-10.0)
[2024-02-04 09:27] LABS: Alanine Aminotransferase 16 U/L (6-35); Albumin Level 3.8 g/dL (3.5-5.1); Alkaline Phosphatase 71 U/L (38-126); Anion Gap 3 mmol/L (4-12); Aspartate Amino Transferase 26 U/L (14-36); Bilirubin,Total 0.8 mg/dL (0.2-1.3); Blood Urea Nitrogen 21 mg/dL (7-17); Calcium 8.8 mg/dL (8.4-10.2); Carbon Dioxide 32 mmol/L (22-30); Chloride 103 mmol/L (98-107); Cholesterol 151 mg/dL (0-200); Estimated Glomerular Filt Rate > 60; Glucose 86 mg/dL (65-110); HDL Direct 59 mg/dL; Sodium 138 mmol/L (137-145); Triglycerides 91 mg/dL (<150)
[2024-02-04 09:38] LABS: LDL Cholesterol Direct 72 mg/dL
[2024-02-05 11:24] LABS: ANA Cascade Screen NEGATIVE (NEGATIVE)
[2024-02-07 13:43] LABS: Vitamin D 1,25 (OH)2 Total 36 pg/mL (18-72); Vitamin D2 1,25 (OH)2 21 pg/mL; Vitamin D3 1,25 (OH)2 15 pg/mL
== END 2024-02-04 08:42 | disposition home or self-care (01) ==
PROVIDERS: PCP Family Medicine; Visit Provider Family Medicine
DX: E79.0 Hyperuricemia without signs of inflammatory arthritis and tophaceous disease (principal); E03.9 Hypothyroidism, unspecified; M06.30 Rheumatoid nodule, unspecified site; E78.2 Mixed hyperlipidemia; I10 Essential (primary) hypertension; E55.9 Vitamin D deficiency, unspecified
CPT/HCPCS: 36415; 80053; 80061; 82652; 84443; 84550; 85025; 85055; 86038; 86225; 86235; 86364

== ENCOUNTER 2024-07-03 07:25 | Observation (INO) | payer MEDICARE, SELFPAY ==
[2024-07-03] VITALS (14 sets, daily range): BP systolic 116–193; BP diastolic 59–87; PULSE 62–79; RESP 14–22; TEMP 36.4–36.6; O2SAT 96–99; BMI 28.5
--- NOTE | ~2024-07-03 | CT_ITS ---
EXAMINATION: CTA chest PE protocol DATE: 07/03/2024 9:14 COMPUTER ANALYST SUPERVISOR INDICATION: Chest pain and shortness of breath TECHNIQUE: Computed tomographic angiography (CTA) of the chest was performed with 100 mL Omnipaque-35 0 intravenous contrast. The dose-length product was 270.12 mGy-cm. Maximum intensity projection 3D-re constructions of the aorta and other arteries were constructed by the technologist on a separate work station. COMPARISON: None. FINDINGS/OBSERVATIONS: PULMONARY ARTERIES: No filling defect is identified within the main or proximal pulmonary artery. The main pulmonary artery is enlarged. THORACIC AORTA: No aneurysmal dilatation or dissection is present. The great vessels are intact LUNGS: Patchy groundglass opacification detected bilaterally, findings suggesting pulmonary edema. MEDIASTINUM: No morphologically suspicious or pathologically enlarged lymph nodes are identified with in the mediastinum or bilateral axilla. BONES OF THE CHEST: No acute fracture. No significant degenerative disease. No lytic or blastic lesions. HEART: The heart is enlarged, without pericardial effusion. IMPRESSION: No pulmonary embolus. No thoracic aortic dissection or dilatation. Findings suggesting pulmonary edema. Reviewed, dictated and finalized at location A. UTER ANALYST SUPERVISOR
--- NOTE | ~2024-07-03 | XR_ITS ---
CHEST RADIOGRAPH CLINICAL HISTORY: cp . COMPARISON: 07/16/2023 TECHNIQUE: Single portable view of the chest. FINDINGS The cardiomediastinal silhouette is unremarkable. The lungs are clear. Visualized osseous structures and soft tissues are unremarkable. IMPRESSION: No focal infiltrate or effusion. Reviewed, dictated and finalized at location A. SOLDERING MACHINE TENDER
--- NOTE | ~2024-07-03 | NM_ITS ---
EXAMINATION: NM harish stress w perfusion DATE: 07/04/2024 10:35 INDICATION: Chest pain TECHNIQUE: Rest images were obtained following intravenous administration of 10.6 mCi Tc99m tetrofosm in (Myoview). The patient was infused intravenously with Lexiscan (Regadenoson). Then, 33.7 mCi Tc99m tetrofosmin (Myoview) was administered intravenously, and stress images were obtained. Data was shaylee nstructed into short axis and horizontal and vertical long axis SPECT images. Gated SPECT images were also obtained. COMPARISON: None. FINDINGS: There is no definite reversible or fixed perfusion abnormality to suggest ischemia or infar ction. There is normal left ventricular chamber size, wall motion and ejection fraction. Left ventr icular ejection fraction measures >70%. IMPRESSION: 1. Normal myocardial perfusion at rest and during stress. 2. Left ventricular ejection fraction measuring >70%. Reviewed, dictated and finalized at location A. TRICAL INTEGRATOR
--- OUTSIDE RECORDS SUMMARY | 2024-07-03 07:28 | XMS_ITS | Clinical Summary ---
Author Organization [facility] Address [address] [place] [address] Care Team Providers Care Defensive Line Coach Name Role Phone Anais Gaston MD Primary Care Provider + Source Comments [facility],non-owned Affiliates and Associated Physician Practices is amultiple site organization consisting of ambulatory clinics and hospital sitesin [place], [place], [place] and [place]. This disclosure is being madepursuant to the Care Everywhere program and may not contain all information available regarding this patient. Last updated 18.[facility] Allergies No known active allergies Medications * Be aware that medications may not be up to date on this document. Alwaysverify current medications with the patient. Medication Sig Dispensed Refills Start Date End Date Status ergocalciferol (DRISDOL) 1.25 MG (78704 UT) capsule Take 50,000 Units by mouth every 7 days 07/17/2020 Active [place]-3 Fatty Acids (OMEGA-3 2100) 1050 MG Take 1 capsule by mouth once daily Active aspirin EC (ECOTRIN) 81 MG tablet Take 81 mg by mouth once daily Active Calcium Carbonate-Vit D-Min (CALTRATE 600+D PLUS MINERALS) 600-800 MG-UNIT TABS Take 1 capsule by mouth once daily Active Ascorbic Acid 500 MG Take 500 mg by mouth once daily Active Turmeric (QC TUMERIC COMPLEX) 500 MG Take 1 capsule by mouth once daily Active Elderberry 575 MG/5ML SYRP Take 5 mL by mouth once daily Active Apple Cider Vinegar 500 MG Take 500 mg by mouth once daily Active glucosamine-chondroit in (GLUCOSAMINE CHONDR COMPLEX) 500-400 MG capsule Take 1 capsule by mouth once daily Active Cinnamon 500 MG Take 500 mg by mouth once daily Active Biotin 2.5 MG Take 2.5 mg by mouth once daily Active Echinacea 380 MG Take 2 capsules by mouth once daily Active lisinopril (PRINIVIL; ZESTRIL) 20 MG tablet Take 20 mg by mouth once daily Active amLODIPine (NORVASC) 5 MG tablet Take 5 mg by mouth once daily Active traZODone (DESYREL) 150 MG tablet Take 150 mg by mouth at bedtime Active rOPINIRole (REQUIP) 0.5 MG tablet Take 0.5 mg by mouth 3 times daily Active gabapentin (NEURONTIN) 400 MG capsule Take 400 mg by mouth 3 times daily Active atorvastatin (LIPITOR) 10 MG tablet Take 10 mg by mouth at bedtime Active alendronate (FOSAMAX) 70 MG tablet Take 70 mg by mouth every 7 days before meal Take in morning with full glass of water on empty stomach and remain upright for 30 min Active citalopram (CELEXA) 40 MG tablet Take 40 mg by mouth once daily Active Family History Medical History Relation Name Comments Asthma Brother Dementia Brother Diabetes - Type 2 Brother Hypertension Brother Parkinson's Disease Brother Arthritis - Rheumatoid Father Cancer - Other Father Hypertension Father Arthritis - Rheumatoid Mother Diabetes - Type 2 Mother Hypertension Mother Relation Name Status Comments Brother Father Mother Social History Tobacco Use Types Packs/Day Years Used Date Smoking Tobacco: Never Smokeless Tobacco: Never Alcohol Use Standard Drinks/Week Comments Never 0 (1 standard drink = 0.6 oz pur e alcohol) Sex and Gender Information Value Date Recorded Sex Assigned at Not on file Gender Identity Not on file Sexual Orientation Not on file Last Filed Vital Signs Vital Sign Reading Time Taken Comments Blood Pressure 124/67 12/25/2020 1:00 PM CDT Pulse 86 12/25/2020 1:00 PM CDT Temperature - - Respiratory Rate - - Oxygen Saturation - - Inhaled Oxygen Concentration - - Weight 71.2 kg (157 lb) 12/25/2020 1:00 PM CDT Height 160 cm (5' 3 ) 12/25/2020 1:00 PM CDT Body Mass Index 27.81 12/25/2020 1:00 PM CDT Plan of Treatment Health Maintenance Due Date Last Done Comments BONE DENSITY TESTING 1940 DTAP/TDAP/TD VACCINES (1 - Tdap) 1960 PNEUMOCOCCAL VACCINE 50+ (1 of 1 - PCV) 08/15/1991 ZOSTER VACCINE (1 of 2) 08/15/1991 Respiratory Syncytial Virus (RSV) Vaccine Pt: or over 60 yrs (1 - 1-dose 75+ series) 2016 COVID-19 VACCINE ( - 2023-2 5 season) 2024 INFLUENZA VACCINE (#1) 2024 8, 04/01/2017 DEPRESSION SCREENING 05/18/2024 MEDICARE AWV CALENDAR YEAR 2024 HEPATITIS B VACCINE Aged Out No longe r eligible based on patient's age to complete this topic HIB VACCINE Aged Out No longer eligi ble based on patient's age to complete this topic HPV VACCINE Aged Out No longer eligi ble based on patient's age to complete this topic MENINGOCOCCAL (Group B) VACCINE Aged Out No longer eligible b ased on patient's age to complete this topic MENINGOCOCCAL VACCINE Aged Out No stephie matt eligible based on patient's age to complete this topic Care Teams Defensive Line Coach Relationship Specialty Start Date End Date Anais Gaston MD [address] [place] [address] PCP - General 11/13/20
--- OUTSIDE RECORDS SUMMARY | 2024-07-03 07:28 | XMS_ITS | Patient Health Summary ---
Author Organization [facility] Address [address] [place] [address] Care Team Providers Care Mechanical Press Operator Name Role Phone Anais Gaston MD Primary Care Provider + Note from [facility],non-owned Affiliates and Associated Physician Practices is amultiple site organization consisting of ambulatory clinics and hospital sitesin [place], [place], [place] and [place]. This disclosure is being madepursuant to the Care Everywhere program and may not contain all information available regarding this patient. Last updated 18.[facility] Allergies No known active allergies Medications * Be aware that medications may not be up to date on this document. Alwaysverify current medications with the patient. * ergocalciferol (DRISDOL) 1.25 MG (29836 UT) capsule(Started 07/17/2020) Take 50,000 Units by mouth every 7 days * [place]-3 Fatty Acids (OMEGA-3 2100) 1050 MG Take 1 capsule by mouth once daily * aspirin EC (ECOTRIN) 81 MG tablet Take 81 mg by mouth once daily * Calcium Carbonate-Vit D-Min (CALTRATE 600+D PLUS MINERALS) 600-800 MG-UNIT TABS Take 1 capsule by mouth once daily * Ascorbic Acid 500 MG Take 500 mg by mouth once daily * Turmeric (QC TUMERIC COMPLEX) 500 MG Take 1 capsule by mouth once daily * Elderberry 575 MG/5ML SYRP Take 5 mL by mouth once daily * Apple Cider Vinegar 500 MG Take 500 mg by mouth once daily * glucosamine-chondroitin (GLUCOSAMINE CHONDR COMPLEX) 500-400 MG capsule Take 1 capsule by mouth once daily * Cinnamon 500 MG Take 500 mg by mouth once daily * Biotin 2.5 MG Take 2.5 mg by mouth once daily * Echinacea 380 MG Take 2 capsules by mouth once daily * lisinopril (PRINIVIL; ZESTRIL) 20 MG tablet Take 20 mg by mouth once daily * amLODIPine (NORVASC) 5 MG tablet Take 5 mg by mouth once daily * traZODone (DESYREL) 150 MG tablet Take 150 mg by mouth at bedtime * rOPINIRole (REQUIP) 0.5 MG tablet Take 0.5 mg by mouth 3 times daily * gabapentin (NEURONTIN) 400 MG capsule Take 400 mg by mouth 3 times daily * atorvastatin (LIPITOR) 10 MG tablet Take 10 mg by mouth at bedtime * alendronate (FOSAMAX) 70 MG tablet Take 70 mg by mouth every 7 days before meal Take in morning with full glass of water on empty stomach and remain upright for 30 min * citalopram (CELEXA) 40 MG tablet Take 40 mg by mouth once daily Social History Tobacco Use Types Packs/Day Years [...] Mass Index 27.81 12/25/2020 1:00 PM CDT Procedures * AZ LARYNGOSCOPY,FLEX FIBER,DIAGNOSTIC(Performed 09/11/2020) Performed for Vocal tremor Results * AZ LARYNGOSCOPY,FLEX FIBER,DIAGNOSTIC (09/11/2020 1:24 PM CDT) Narrative Dario Bruner MD - 09/11/2020 1:24 PM CDT Dario Bruner MD 09/11/2020 1:42 PM Procedure Note Endoscopy Type: Laryngoscopy without stroboscopy 10495 Endoscope: Flexible 4mm Scope Anesthesia: Lidocaine 2% and Neosynephrine 1/2% (nasal) Procedure Details: The patient was sitting upright in a chair with the head in a slightly anterior sniffing position. The topical anesthesia was administered and then adequate time was allowed for an anesthetic effect. The endoscope was passed thru the nasal cavity with the tongue retracted anteriorly. The tip of the endoscope was positioned in the oropharynx which allowed a complete view of the base of tongue, vallecula, pyriform recesses, epiglottis, bilateral true and false vocal folds, the interarytenoid and post cricoid region, and the immediate subglottis. Findings: Examination: No obvious evidence of tremor in the soft palate oropharynx. When vocalizing there is occasionally some mild tremor and some mild hyper function of the vocal folds. Not true spasms and not an obvious ongoing rhythmic tremor. Healthy-appearing anatomy throughout. Condition: Stable. Patient tolerated procedure well. Complications: I was present for the entirety of the procedure. Dario Bruner MD PROCEDURE/MINOR SURG ICAL ORDERABLES Care Teams Mechanical Press Operator Relationship Specialty Start Date End Date Anais Gaston MD [address] [place] [address] PCP - General 11/13/20
--- OUTSIDE RECORDS SUMMARY | 2024-07-03 07:28 | XMS_ITS | Clinical Summary ---
Author Organization [facility] Address [address] [place] [address] Care Team Providers Care Document Controller Name Role Phone Anais Gaston MD Unavailable [phone] Anais Gaston MD Primary Care Provider Allergies No known active allergies Medications atorvastatin (LIPITOR) 20 mg tablet Take 0.5 tablets (10 mg total) by mouth daily 1 08/10/2018 Active pcydx-4-npb-epa -dpa-fish oil 1,050-1,200 mg capsule Take 1 capsule by mouth daily Active bgt-M5-arz65-zi qo-zjd-cjto-bor 600 mg calcium- 800 unit-50 mg tablet Take 1 tablet by mouth daily Active ascorbic acid (VITAMIN C) 500 mg tablet,chewable Take 1 tablet/chew tab (500 mg total) by mouth daily Active aspirin 81 mg enteric coated tablet Take 1 tablet (81 mg total) by mouth 2 (two) times a day Active alendronate (FOSAMAX) 70 mg tablet Take 1 tablet (70 mg total) by mouth every 7 days Take in the morning with a full glass of water, on an empty stomach, and do not take anything else by mouth or lie down for the next 30 min. Active lisinopril (PRINIVIL,ZESTR IL) 20 mg tablet Take 1 tablet (20 mg total) by mouth daily 90 tablet 1 01/14/2019 Active gabapentin (NEURONTIN) 400 mg capsule Take 1 capsule (400 mg total) by mouth 3 (three) times a day 07/20/2020 Active cinnamon bark 500 mg capsule Take 1 capsule (500 mg total) by mouth daily Active TURMERIC ORAL Take 1 capsule by mouth daily Active ELDERBERRY FRUIT AND FLOWER ORAL Take 5 mL by mouth daily Active citalopram (CeleXA) 20 mg tablet Take 1 tablet (20 mg total) by mouth daily 02/06/2021 Active meloxicam (MOBIC) 15 mg tablet Take 1 tablet (15 mg total) by mouth daily 03/25/2021 Active zinc 50 mg tablet Take 50 mg by mouth daily Active cyanocobalamin (Vitamin B-12) 500 mcg tabletIndicatio ns:Prevention of Vitamin B12 Deficiency Take 1 tablet (500 mcg total) by mouth daily Active biotin 5,000 mcg tablet,disinteg rating Take 1 tablet by mouth daily Active IRON, FERROUS SULFATE, ORAL Take 27 mg by mouth daily Active vitamin E (AQUASOL E) 100 unit capsule Take 1 capsule (100 Units total) by mouth daily Active ergocalciferol (VITAMIN D) 50,000 unit capsule Take 1 capsule (50,000 Units total) by mouth once a week Active atorvastatin (LIPITOR) 20 mg tablet Take 1 tablet (20 mg total) by mouth nightly 09/15/2022 Active coenzyme Q10 100 mg capsule Take 1 capsule (100 mg total) by mouth daily Active glucosamine/cho ndroitin/C/Tim (glucosamine-ch ondroit-vit C-Mn) 961-072-15-5 mg tablet Take 1 tablet by mouth daily Active traZODone (DESYREL) 150 mg tablet Take 0.5 tablets (75 mg total) by mouth nightly Active azelastine (ASTELIN) 137 mcg (0.1 %) nasal spray USE 1 SPRAY(S) IN EACH NOSTRIL EVERY 12 HOURS 04/24/2023 Active fluticasone propionate (FLONASE) 50 mcg/actuation nasal spray USE 1 SPRAY(S) IN EACH NOSTRIL ONCE DAILY 04/24/2023 Active rOPINIRole (REQUIP) 0.5 mg tablet Take by mouth 3 (three) times a day 06/09/2023 Active cranberry 500 mg capsule Take by mouth Activ e ELDERBERRY FRUIT ORAL Take by mouth Activ e Active Problems Problem Noted Date Diagnosed Date Restless leg syndrome 10/20/2023 Right carpal tunnel syndrome 10/22/2022 Tremor 10/20/2022 Dizziness and giddiness 10/20/2022 Chronic left-sided low back pain with left-sided sciatica 07/04/2022 Essential tremor 03/13/2021 Assessment & Plan (01/23/2024 6:03 PM CDT): ASSESSMENT She has a history of head tremor, voice tremor, and intermittent tremor of the hands, without family history of tremor. She has also had symptoms suggestive of restless leg syndrome. Finally, she has had numbness and tingling in both hands that ascend up to her mid-upper arms bilaterally. - The examination revealed mild high-frequency action tremor in both hands, no rest tremor, no head or voice tremor, and impaired tandem gait. She also had mild, slightly asymmetric parkinsonism that included mild rigidity, mild hypokinesia of hand movements, mild hypomimia, and slow gait. There was no postural instability. Sensation of vibration was moderately reduced in both feet. The motor UPDRS score today was 15 in Feb 2021. - Diagnostic impression: the most likely diagnosis is essential tremor. The mild parkinsonian findings were nonspecific and not sufficient to indicate a diagnosis of Parkinson's disease. In addition, there have been paresthesias in both arms, and the examination revealed reduced vibration sense in the feet. These findings cannot be explained by essential tremor. Instead, they raise concern for possible peripheral neuropathy and carpal tunnel syndrome. Will assess with electrodiagnostic studies. Start: 10:05 am End 10:31 am Total time: 29 min Recommendations 1. No need for primidone since tremor is not interfering with daily activities 2. Continue ropinirole and gabapentin for RLS. 3. I encouraged regular exercise and walking I have established and will maintain a relationship with this patient to longitudinally manage her chronic neurologic movement disorder. Assessment & Plan (10/20/2023 11:13 AM CDT): Ms. Johnston is an 83 year-old right-handed woman presenting today for follow-up of probable essential tremor. She has a history of intermittent action tremor of both hands, head tremor, and voice tremor. She first noticed head tremor in late 2019 at age of 79 and started on primidone in 2020 which she had fond helpful for tremor. There is no family history of tremor. She also has had symptoms suggestive of restless leg syndrome (RLS) for which she takes ropinirole (1 mg TID) and gabapentin 400 mg TID (though this has perhaps also been used for ET in past, it is unclear). She is a previous patient of Dr. Howe and was last seen in our clinic 03/19/[address] Carrasco. Although she had tolerated primidone in the past and it was recommended to be increased to 50 mg AM/100 mg QHS (from 100 mg QHS) at that visit, for unclear reasons it was stopped by June 2022 and she denies ever trialing the higher dosage. As this did provide tremor benefit in the past and patient denies any side effects, I will reach out to her PCP to clarify its discontinuation and explore gradually restarting it and titrating as tolerated for tremor control. Although on exam her tremor is mild and worse on her left-hand than right with her being right-handed, she finds it bothersome and is interested in improving her tremor burden. She is also bothered by her ongoing and progressively worsening voice tremor. She had previously been following with [facility], last seen in 2020 with consideration of botox and she is interested in possibly re-exploring this option. Flexible laryngoscopy 09/11/20 revealed no obvious evidence of tremor in the soft palate or oropharynx. When vocalizing there is occasionally some mild tremor and some mild hyperfunction of the vocal cords. Not true spasms and not obvious ongoing rhythmic tremor. Healthy-appearing anatomy throughout . If she wishes to consolidate her care to [facility], we can provide her a referral to our ENT for this. As her RLS symptoms are not currently bothersome, we will not make any dose adjustments to her ropinirole. She has thus far tolerated it well without sedation, lightheadedness, or impulse control issues so can consider increasing further in future if needed. Her numbness and tingling has resolved in her right hand since last visit after undergoing carpal tunnel release. She continues to experience bothersome left- hand numbness, tingling, and reports frequently dropping objects from her left hand and she is now considering carpal tunnel release for this side as well. Examination today again revealed mild high-frequency action tremor in both hands, no rest tremor. She did have slight intermittent head tremor and moderate voice tremor with impaired tandem gait and slight postural instability (3 steps). UPDRS was not markedly changed from last visit (18 today compared to 15 in 2021 and 2020). Diagnostic impression: the most likely diagnosis is essential tremor. The mild parkinsonian findings remain non-specific and not sufficient to indicate a diagnosis of Parkinson's Disease. As she has noticed subtle worsening of her balance and has never worked with physical therapy, I have recommended a physical therapy evaluation/treatment. She has noticed gradual worsening of her memory and was scheduled for NPT today, however she cannot stay and this will be rescheduled in January for objective re-evaluation. Recommendations Will consider restarting primidone with gradual titration after first speaking with her PCP to clarify past discontinuation If able to resume, would recommend Primidone 50 mg tablet - starting 25 mg nightly then increasing by 25 mg nightly each week until reaching 100 mg nightly if tolerated and then re-evaluating again at upcoming appointment in January 2024 for further titration Week # 1: 1/2 tab nightly at bedtime (25 mg) Week # 2: 1 tab nightly at bedtime (50 mg) Week # 3: 1.5 tab nightly at bedtime (75 mg) Week # 4: 2 tab nightly at bedtime (100 mg) If symptoms controlled at a given dose, no need to increase further. Monitor for possible side effects, principally sedation, confusion, dizziness, imbalance, nausea, headache. Will send final note/recommendations to both PCP and Dr. Vasquez office for clarity of communication Physical therapy referral for gait imbalance Same ropinirole 1 mg TID for RLS (0.5 mg tabs x 2 three times daily) Routine NPT was scheduled for today but patient cannot stay due to transportation, will reschedule to 01/21/[address] Carrasco Follow-up as scheduled 01/21/[address] Carrasco and me in July 2024 (6 months after) Assessment & Plan (03/23/2022 4:36 PM PERINATAL TECH): ASSESSMENT She has a history of head tremor, voice tremor, and intermittent tremor of the hands, without family history of tremor. She has also had symptoms suggestive of restless leg syndrome. Finally, she has had numbness and tingling in both hands that ascend up to her mid-upper arms bilaterally. - The examination revealed mild high-frequency action tremor in both hands, no rest tremor, no head or voice tremor, and impaired tandem gait. She also had mild, slightly asymmetric parkinsonism that included mild rigidity, mild hypokinesia of hand movements, mild hypomimia, and slow gait. There was no postural instability. Sensation of vibration was moderately reduced in both feet. The motor UPDRS score today was 15 in Feb 2021. - Diagnostic impression: the most likely diagnosis is essential tremor. The mild parkinsonian findings were nonspecific and not sufficient to indicate a diagnosis of Parkinson's disease. In addition, there have been paresthesias in both arms, and the examination revealed reduced vibration sense in the feet. These findings cannot be explained by essential tremor. Instead, they raise concern for possible peripheral neuropathy and carpal tunnel syndrome. Will assess with electrodiagnostic studies. Start: 5:00pm End 5:33pm Total time: 42 min Recommendations 1. Increase primidone to 1 tab in the morning and 2 tabs at bedtime 2. Please send a referral for EMG/NCS to evaluate numbness and tingling in her hands bilaterally, possible carpal tunnel syndrome. This was also requested by Dr. oHwe at her previous visit but Ms. Johnston did not hear back about scheduling the study. 3. I also recommended wrist splints to wear in the evening and at night. She is currently taking mobic and gabapentin which should be helpful to some extent for paresthesias and burning in her hands. Assessment & Plan (04/29/2021 6:22 PM PERINATAL TECH): NEUROPSYCHOLOGICAL EVALUATION: INTERPRETATION (for Assessment and Plan, see further below) Normal cognitive performance on MMSE; Mildly impaired cognitive performance on MoCA. No evidence of depression on GDS; No evidence of depression on HADS. Mild evidence of anxiety on HADS. No evidence of daytime drowsiness on Chadwick scale. No evidence of REM Behavior Disorder (RBD) on Stiasny-Kolster scale. These scores establish a baseline for potential future reference and do not require a change in current plan. ASSESSMENT - 80 y.o. woman with a one-year history of head tremor, voice tremor, and intermittent tremor of the hands, without family history of tremor. She has also had symptoms suggestive of restless leg syndrome for about a year and a half. Finally, she has had numbness and tingling in both hands that ascend up to her mid-upper arms bilaterally. - The examination revealed mild high-frequency action tremor in both hands, no rest tremor, no head or voice tremor, and impaired tandem gait. She also had mild, slightly asymmetric parkinsonism that included mild rigidity, mild hypokinesia of hand movements, mild hypomimia, and slow gait. There was no postural instability. Sensation of vibration was moderately reduced in both feet. The motor UPDRS score today was 15 in Feb 2021. - Diagnostic impression: the most likely diagnosis is essential tremor. The mild parkinsonian findings were nonspecific and not sufficient to indicate a diagnosis of Parkinson's disease. In addition, there have been paresthesias in both arms, and the examination revealed reduced vibration sense in the feet. These findings cannot be explained by essential tremor. Instead, they raise my concern for possible peripheral neuropathy. Will assess with electrodiagnostic studies. PLAN (phrased as addressed to the patient): - For your tremor, start primidone 50 mg tabs (prescribed): week 1, 1/2 tab at bedtime: week 2, increase to 1/2 tabs 2x/day morning and night; week 3, 1 tab in the morning and 1/2 tab at night; weel 4 and after, 1 tabs 2x/day - Look out for possible drowsiness. - On the first day of this medication and on the first day of every weekly increase, do not drive for 4 hours after the morning dose. - My office will arrange for you to have an EMG (a nerve study) (clinical info: 1 year of ascending paresthesias in arms and thighs (not feet). Assess for cervical radiculopathy) - Contact my office in 6 weeks to report whether your head tremor is better. This encounter's total stbi-ot-mbov time was greater than 30 minutes. I spent more than 50% of this time in counseling and/or coordination of care as documented in the note. The patient visit started at 1312 and ended at 1314. Greater than 50% of the visit was spent on counseling and coordinating care. Patient was counseled on rationale for starting primidone. NOTE: The present note includes, below, the line Ambulatory referral to Neurology . This statement is included as a mandatory component of the note template that I do not have the ability to remove. This statement has no clinical significance. I am NOT ordering a referral to Neurology. Neck pain 11/12/2020 Speech disturbance 11/12/2020 Age-related osteoporosis wit hout current pathological fracture 10/08/2018 Mixed hyperlipidemia 10/08/2018 Essential hypertension 10/08/2018 Anxiety and depression 10/08/2018 Immunizations Immunization Administration Dates Next Due Influenza, Quadrivalent, Hig h Dose, Preservative Free, Intrr 01/31/2020 Influenza, Trivalent, High D ose, Split, Preservative Free, Intramuscular 03/09/2018,04/01/2017 Pneumococcal Polysaccharide PPV23 03/19/2016 Surgical History Surgery Date Site/Laterality Comments DILATION AND CURETTAGE OF UTERUS COLONOSCOPY CARPAL TUNNEL RELEASE 05/18/2022 - 05/17/2023 Right CATARACT EXTRACTION 05/18/2023 - 05/17/2024 Bilateral Medical History Medical History Date Comments Essential hypertension Mixed hyperlipidemia Anxiety and depression well cont rolled on daily meds Osteoporosis pt states is ost eopenia Essential tremor head, hands and voice Speech abnormality vocal tremors , slow speech Balance problem worse in AM-no f alls MVP (mitral valve prolapse) dx i n -no issues Edema slight, left ank le Insomnia RLS (restless legs syndrome) Arthritis generalized Tremors of nervous system Carpal tunnel syndrome on both sides Family History Medical History Relation Name Comments Alzheimer's disease Brother Cancer Father Diabetes Mother Relation Name Status Comments Brother Father Mother Social History Tobacco Use Types Packs/Day Years Used Date Smoking Tobacco: Never Passive Smoke Exposure: Never Smokeless Tobacco: Never Tobacco Cessation:Counseling Given: Not Answered Alcohol Use Standard Drinks/Week Comments Not Currently 0 (1 standard drink = 0.6 oz pur e alcohol) AUDIT-C Answer Date Recorded Q1: How often do you have a drink containing alcohol? Never 03/08/2024 Q2: How many drinks containi ng alcohol do you have on a typical day when you are drinking? Patient does not drink Q3: How often do you have si x or more drinks on one occasion? Never 03/08/2024 Personal Safety Answer Date Recorded Have you ever been in or are you currently in a harmful physical or emotional relationship or is someone making you feel afraid or unsafe? 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 on file Not on file Not on file Obstetrics History Last Filed Vital Signs Vital Sign Reading Time Taken Comments Blood Pressure 144/58 03/08/2024 10:47 AM CDT Pulse 73 03/08/2024 10:47 AM CDT Temperature 36.1 C (96.9 F) 01/21/2024 9:01 AM CDT Respiratory Rate 19 10/27/2022 11:4 0 AM CDT Oxygen Saturation 95% 03/08/2024 10: 47 AM CDT Inhaled Oxygen Concentration - - Weight 70.7 kg (155 lb 13.8 oz) 024 10:47 AM CDT Height 160 cm (5' 3 ) 03/08/2024 10:47 AM CDT Body Mass Index 27.61 03/08/2024 10:47 AM CDT Plan of Treatment Health Maintenance Due Date Last Done Comments DTaP/Tdap/Td Vaccine (1 - Tdap) 1952 Hepatitis B Screening 08/15/1959 Zoster Vaccine (1 of 2) 08/15/1991 Well Visit 65+ 2006 Pneumococcal vaccine 65+ (2 of 2 - PCV) 03/19/2017 03/19/2016 Osteoporosis Screening-Bone Density Scan 10/22/2020 10/22/2018 Depression Screening 03/13/2022 03/13/2021 Fall Risk Assessment 10/28/2023 10/27/2022 Influenza Vaccine (#1) 2024 0, 03/09/2018, 04/01/2017 Procedures Procedure Name Priority Date/Time Associated Diagnosis Comments DEXA AXIAL SKELETON BONE DENSITY 1 OR MORE SITES 10/22/2018 9:53 AM CDT from Last 3 Months or Most Recently Relevant to Health Maintenance Results * Dexa Axial Skeleton Bone Density 1 or 2 Site (10/22/2018 9:53 AM CDT) Anatomical Region Laterality Modality Body N/A Radiographic Keisha ging 10/23/2018 9:13 AM CDT Narrative 10/23/2018 9:15 AM CDT Patient Name: HEATH JOHNSTON Ap Dr: Isma Jeffries MD, D.O.B: 1940 Exam Date: 10/22/18952 Age: 78 Sex: Female MR#: [id number] Loc: RADIOLOGY REPORT Order #[id number] Bone Density Bone Density Hip/Spine (STD) Signed EXAM DESCRIPTION: Bone Density Hip/Spine (STD) REASON FOR STUDY: 78-year-old post-menopausal female, screening for osteoporosis. 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 Dissimilar scan types or analysis methods precludes assessment for calculating a significant change. LEFT HIP: Current Total BMD is 0.717 g/cm2 T-score is -1.8 Most recent prior Total BMD was 0.698 g/cm2 There has been a 2.8% increase in BMD in the left hip. Dissimilar scan types or analysis methods precludes assessment for calculating a significant change. Current femoral neck BMD is 0.602 g/cm2 T-score is -2.2 IMPRESSION: 1. Low bone mass by WHO criteria. 2. The WHO fracture risk assessment tool (FRAX) indicates that the 10 year risk for a major osteoporotic fracture is 15.0% and the 10 year risk for a hip fracture is 4.2%. The FRAX tool has not been validated in patients currently or previously treated with pharmacotherapy for osteoporosis. In such patients, clinical judgement must be exercised in interpreting FRAX scores as the fracture risk may be overestimated. REFERENCE: Bone mineral density: Normal (T-score above or = -1.0) Low bone mass (T-score between -1.0 and -2.5) replaces the previously used term osteopenia Osteoporosis (T-score = or below -2.5) Medical evaluation for secondary causes of low bone mineral density may be appropriate. FRAX is a World Health Organization validated fracture risk assessment tool that calculates a person's 10 year probability of a major osteoporosis related fracture and hip fracture. According to the National Osteoporosis Foundation guidelines, postmenopausal women and men age 50 or older with low bone mass and a 10 year probability of a major osteoporosis related fracture = or greater than 20% or a 10 year probability of a hip fracture = or greater than 3% should be considered for treatment. For further information, including treatment recommendations, please refer to the 2013 ISCD Official Positions (http://www.iscd.org) and the NOF's Clinician's Guide to Prevention and Treatment of Osteoporosis (http://www.nof.org/professionals/clinical-guidelines) THIS IS AN ELECTRONICALLY VERIFIED FINAL REPORT 10/23/2018 9:15 AM - Electronically signed by Ru Walker M.D. AB: Report ID: [id number] Reading Location: [place] [address] REPORT ELECTRONICALLY SIGNED IN OTHER VENDOR SYSTEM Resulting Agency Comment O Procedure Note Ru Walker MD - 10/23/2018 Patient Name: HEATH JOHNSTON Dr: Isma Jeffries MDO.B: 1940 Exam Date: 10/22/18952 Age: 78 Sex: Female MR#: [id number] Loc: RADIOLOGY REPORT Order #[id number] Bone Density Bone Density Hip/Spine (STD) Signed EXAM DESCRIPTION: Bone Density Hip/Spine (STD) REASON FOR STUDY: 78-year-old post-menopausal female, screening for osteoporosis. 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 Dissimilarscan types or analysis methods precludes assessment for calculating asignificant change. LEFT HIP: Current Total BMD is 0.717 g/cm2 T-score is -1.8 Most recent prior Total BMD was 0.698 g/cm2 There has been a 2.8% increase in BMD in the left hip. Dissimilar scantypes or analysis methods precludes assessment for calculating a significantchange. Current femoral neck BMD is 0.602 g/cm2 T-score is -2.2 IMPRESSION: 1. Low bone mass by WHO criteria. 2. The WHO fracture risk assessment tool (FRAX) indicates that the 10year risk for a major osteoporotic fracture is 15.0% and the 10 year risk fora hip fracture is 4.2%. The FRAX tool has not been validated in patients currently or previously treated with pharmacotherapy for osteoporosis. In such patients,clinical judgement must be exercised in interpreting FRAX scores as the fracturerisk may be overestimated. REFERENCE: Bone mineral density: Normal (T-score above or = -1.0) Low bone mass (T-score between -1.0 and -2.5) replaces thepreviously used term osteopenia Osteoporosis (T-score = or below -2.5) Medical evaluation for secondary causes of low bone mineral density maybe appropriate. FRAX is a World Health Organization validated fracture risk assessmenttool that calculates a person's 10 year probability of a major osteoporosisrelated fracture and hip fracture. According to the National OsteoporosisFoundation guidelines, postmenopausal women and men age 50 or older with low bonemass and a 10 year probability of a major osteoporosis related fracture = or greater than 20% or a 10 year probability of a hip fracture = or greaterthan 3% should be considered for treatment. For further information, including treatment recommendations, pleaserefer to the 2013 ISCD Official Positions (http://www.iscd.org) and the NOF's Clinician's Guide to Prevention and Treatment of Osteoporosis (http://www.nof.org/professionals/clinical-guidelines) THIS IS AN ELECTRONICALLY VERIFIED FINAL REPORT 10/23/2018 9:15 AM - Electronically signed by Ru Walker M.D. AB: Report ID: [id number] Reading Location: [place] [address] REPORT ELECTRONICALLY SIGNED IN OTHER VENDOR SYSTEM us Isma Jeffries MD IMG DXA PROCEDURES Final Resu lt from Last 3 Months or Most Recently Relevant to Health Maintenance Insurance [facility] Address: [place] [id number] [facility] Address: [place] [id number] MEDICARE SOLUTIONS Care Teams Document Controller Relationship Specialty Start Date End Date Anais Gaston MD [address] [facility] [address] [place] [address] PCP - General Family Medicine 10/15/23 Anais Gaston MD [address] [facility] [address] [place] [address] Family Medicine 08/29/22
--- OUTSIDE RECORDS SUMMARY | 2024-07-03 07:28 | XMS_ITS | Referral Summary ---
Author Organization [facility] [address] Address [address] [facility] [place] [address] Care Team Providers Care Music Therapy Specialist Name Role Phone Anais Gaston MD Primary Care Provider + Source Comments [facility] [address],non-owned Affiliates and Associated Physician Practices is amultiple site organization consisting of ambulatory clinics and hospital sitesin [place], [place], [place] and [place]. This disclosure is being madepursuant to the Care Everywhere program and may not contain all information available regarding this patient. Last updated 18.[facility] [address] Allergies No known active allergies Medications * Be aware that medications may not be up to date on this document. Alwaysverify current medications with the patient. Medication Sig Dispensed Refills Start Date End Date Status ergocalciferol (DRISDOL) 1.25 MG (91616 UT) capsule Take 50,000 Units by mouth every 7 days 07/17/2020 Active [place]-3 Fatty Acids (OMEGA-3 2100) 1050 MG Take [...] 40 mg by mouth once daily Active Social History Tobacco Use Types Packs/Day Years [...] 12/25/2020 1:00 PM CDT Plan of Treatment Not on file Care Teams Music Therapy Specialist Relationship Specialty Start Date End Date Anais Gaston MD [address] [place] [address] PCP - General 11/13/20
--- OUTSIDE RECORDS SUMMARY | 2024-07-03 07:28 | XMS_ITS | Referral Summary ---
Author Organization [facility] Address [address] [place] [address] Care Team Providers Care Manufacturing Associate Name Role Phone Anais Gaston MD Unavailable [phone] Anais Gaston MD Primary Care Provider Allergies No known active allergies Medications atorvastatin (LIPITOR) 20 mg tablet Take 0.5 tablets (10 mg total) by mouth daily 1 08/10/2018 Active reioj-4-tjq-epa -dpa-fish oil 1,050-1,200 mg capsule Take 1 capsule by mouth daily Active dvt-M4-qst82-zi qz-syy-dnff-bor 600 mg calcium- 800 unit-50 mg tablet [...] daily Active glucosamine/cho ndroitin/C/Tim (glucosamine-ch ondroit-vit C-Mn) 546-540-29-5 mg tablet Take 1 tablet by mouth [...] tremor. 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 This was also requested by Dr. Howe at her previous visit but Ms. Johnston did not hear back about scheduling the study. 3. I also recommended wrist splints to wear in the evening and at night. She is currently taking mobic and gabapentin which should be helpful to some extent for paresthesias and burning in her hands. Assessment & Plan (04/29/2021 6:22 PM GEOLOGICAL SCIENCE TEACHER): NEUROPSYCHOLOGICAL EVALUATION: INTERPRETATION (for Assessment and Plan, see further below) Normal cognitive performance on MMSE; Mildly impaired cognitive performance on MoCA. No evidence of depression on GDS; No evidence of depression on HADS. Mild evidence of anxiety on HADS. No evidence of daytime drowsiness on Honor scale. No evidence of REM Behavior Disorder [...] head tremor is better. This encounter's total jrqr-cm-qnvn time was greater than 30 minutes. 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 AB: Report ID: [id number] Reading Location: [id number] REPORT ELECTRONICALLY SIGNED IN OTHER VENDOR SYSTEM Resulting Agency Comment O Procedure Note Ru Walker MD - 10/23/2018 Patient Name: HEATH JOHNSTON Ryan Dr: Isma Jeffries MD D.O.B: 1940 Exam Date: 10/22/18 0953 Age: 78 Sex: Female MR#: [id number] Loc: RADIOLOGY REPORT Order #[id number] Bone Density Bone Density Hip/Spine (STD) Signed EXAM DESCRIPTION: Bone Density Hip/Spine (STD) REASON FOR STUDY: 78-year-old post-menopausal female, screening for osteoporosis. 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 AB: Report ID: [id number] Reading Location: [id number] REPORT ELECTRONICALLY SIGNED IN OTHER VENDOR SYSTEM Isma Jeffries MD IMG DXA PROCEDURES Final Resu lt from Last 3 Months or Most Recently Relevant to Health Maintenance Insurance MED[employer] MEDICARE SOLUTIONS MEDICARE SOLUTIONS MEDICARE SOLUTIONS Care Teams Manufacturing Associate Relationship Specialty Start Date End Date Anais Gaston MD [address] [place] [address] PCP - General Family Medicine 10/15/23 Anais Gaston MD [address] [place] [address] Family Medicine 08/29/22
--- NOTE | 2024-07-03 07:30 | ECG_ITS ---
Test Date: 2024-07-03 07:37:33 Measurements Intervals [place] Rate: 76 P: 14 HI: 143 QRS: -19 QRSD: 72 T: 14 QT: 385 QTc: 433 Interpretive Statements SINUS RHYTHM POSSIBLE ANTERIOR MYOCARDIAL INFARCTION , OF INDETERMINATE AGE BORDERLINE ST-T WAVE ABNORMALITY- HIGH LATERAL LEADS BASELINE ARTIFACT- I, II, III, AVR, AVF, V4 BORDERLINE ECG No previous ECG available for comparison Electronically Signed On 07-03-2024 08:07:53 FINAL APPLICATION REVIEWER by Adarsh Alvarez D.O.
[2024-07-03] MEDS: ASPIRIN 81 MG CHEWABLE TABLET 324 MG PO (07:41)
[2024-07-03 07:51] LABS: Basophils Percent Auto 0.7 % (0.2-1.2); Eosinophils Absolute Auto 0.2 K/mm3 (0-0.3); Eosinophils Percent Auto 3.5 % (0-4.4); Hematocrit 41.5 % (37.0-47.0); Hemoglobin 13.2 g/dL (12.0-15.0); Immature Granulocyte Absolute 0.01 K/mm3 (0.00-0.031); Immature Granulocyte Percent A 0.2 % (0-0.5); Immature Platelet Fraction Pct 4.4 % (0.9-11.2); Lymphocytes Absolute Auto 1.63 K/mm3 (0.9-3.2); Lymphocytes Percent Auto 29.6 % (18.3-44.2); Mean Corpuscular HGB Conc 31.8 g/dl (32-36); Mean Corpuscular Hemoglobin 30.1 pg (26-34); Mean Corpuscular Volume 94.7 fl (80-100); Mean Platelet Volume 10.8 fl (7.4-10.4); Monocytes Absolute Auto 0.5 K/mm3 (0.1-0.6); Monocytes Percent Auto 8.5 % (2.6-8.5); Neutrophils Absolute Auto 3.2 K/mm3 (1.3-6.7); Neutrophils Percent Auto 57.5 % (45.5-73.1); Platelet Count Result 125 k/mm3 (150-375); Red Blood Count 4.38 M/mm3 (4.2-5.4); Red Cell Distribution Width 13.1 % (11.5-14.5); White Blood Count 5.5 K/mm3 (4.5-10.0)
[2024-07-03] MEDS: NITROGLYCERIN SL 0.4 MG TABLET SUBLINGUAL (07:55)
[2024-07-03 08:00] LABS: Alanine Aminotransferase 23 U/L (6-35); Albumin Level 4.1 g/dL (3.5-5.1); Alkaline Phosphatase 92 U/L (38-126); Anion Gap 6 mmol/L (4-12); Aspartate Amino Transferase 29 U/L (14-36); Blood Urea Nitrogen 17 mg/dL (7-17); Calcium 9.4 mg/dL (8.4-10.2); Carbon Dioxide 31 mmol/L (22-30); Chloride 103 mmol/L (98-107); Estimated CRCL calculation 59 ml/min; Estimated Glomerular Filt Rate > 60; Glucose 88 mg/dL (65-110); Lipase 60 U/L (23-300); Potassium 3.5 mmol/L (3.4-5.0); Sodium 140 mmol/L (137-145)
[2024-07-03 08:10] LABS: Troponin I < 0.012 ng/mL (0.000-0.034)
--- NOTE | 2024-07-03 08:16 | PC.NURSE ---
0755: Pt bp 193/74 given 1st nitroglycerin tablet for 6/10 chest pain/heaviness 0800: Pt bp 154/77 given 2nd nitroglycerin tablet for 5/10 chest pain/heaviness 0805:Pt bp 128/66 given 3rd nitroglycerin tablet for 5/10 chest pain/heaviness 0810: Pt rating chest pain/heaviness at 5/10 still, EDP aware
[2024-07-03 08:17] LABS: INR 1.1; Prothrombin Time 14.5 Seconds (11.1-14.7)
[2024-07-03 08:18] LABS: Partial Thromboplastin Time 31.2 Seconds (22.3-36.8)
[2024-07-03 08:25] LABS: Influenza A QL RT-PCR Negative (Negative); Influenza B QL RT-PCR Negative (Negative); RSV RNA, RT-PCR Negative (Negative); SARS-CoV-2 RNA PCR Negative (Negative)
--- NOTE | 2024-07-03 08:26 | ED_ITS ---
HPI - General Adult General Chief complaint: Chest Pain Stated complaint: chest pain Time Seen by Provider: 07/03/24 07:32 History of Present Illness HPI narrative: Patient is an 83-year-old female who presents ER with chest pain. Goes across her entire chest. Began yesterday. Radiates into her left neck. Associated with shortness of breath that is worsened with exertion. No syncope. No history of heart disease. After walking up her steps she has to take a couple of minutes to rest which is atypical for her. Denies fevers or chills or sweats. She has mild rhinorrhea. She reports this is chronic over last 2 months. Pain is currently 6/10. Blood pressure in the 190 systolic, she reports she took her hypertension medications today. Related Data Home Medications ?Medication ?Instructions ?Recorded ?Confirmed ?Last Taken ?Type aspirin 81 mg tablet,delayed 81 mg PO DAILY 06/04/23 07/03/24 07/03/24 History release (Adult Aspirin Regimen) coenzyme Q10 100 mg capsule (Co 100 mg PO DAILY 06/04/23 07/03/24 07/02/24 History Q-10) Allergies Allergy/AdvReac Type Severity Reaction Status Date / Time No Known Allergies Allergy Verified 07/03/24 07:40 Review of Systems 2 Review of Systems: All systems reviewed & are unremarkable except as noted in HPI and below Constitutional: Constitutional: Reports no additional constitutional complaints Cardiovascular: Cardiovascular: Reports no additional cardiovascular complaints Respiratory: Respiratory: Reports no additional respiratory complaints Gastrointestinal: Gastrointestinal: Reports no additional gastrointestinal complaints [facility] Past Medical History Medical History Benign essential HTN Internal hemorrhoids Cataract CTS (carpal tunnel syndrome) Vitamin D deficiency Trochanteric bursitis, right hip Trochanteric bursitis, left hip Spondylosis of lumbar spine Spasmodic dysphonia Post-menopausal Osteoporosis Osteopenia Parkinsonism Positive JORDAN (antinuclear antibody) MDD (major depressive disorder), recurrent episode, moderate [place] (hard of hearing) High cholesterol Chronic insomnia Arthritis Sacroiliac joint dysfunction of left side Vision loss Family History Family History Father Lung cancer Mother Diabetes mellitus Hypertension Heart disease Grandparent Malignant neoplasm of prostate Grandparent Diabetes mellitus Hypertension Cerebrovascular accident Social History Social History Social History: Smoking status: Never smoker Second hand tobacco smoke exposure: No Alcohol intake: never Substance use: never Substance use type: does not use Do You Feel Safe in your Home?: Yes Lack of Transportation: No Lack of Food: Never True Current Housing: I Have Housing Concerned About Future Housing: No Difficulty Paying Gas/Electric Bills: No Difficulty Paying for Meds: No Currently Unemployed: YES Education: Don't Know Difficulty w/ Childcare or Family Care: No Living arrangements: alone Occupation/Education: retired Gender identity (if verbalized by the patient): Female Sexual Orientation (if Verbalized by the Patient): Straight or Heterosexual Spiritual care concerns: No Exam 2 Narrative: GENERAL: Well-appearing, well-nourished, and in no acute distress. HEAD: Normocephalic, atraumatic. ENT: Mucous membranes moist. CHEST: Clear to auscultation. No respiratory distress. HEART: Regular rate and rhythm. Normal peripheral pulses. ABDOMEN: Soft, nontender, nondistended. EXTREMITIES: Normal range of motion. No edema. SKIN: Warm, dry, no rash. NEURO: Alert and oriented x3. PSYCH: Normal mood and affect. Course Course Emergency Course: Pain improved with nitro but patient did become hypoxic as well. CTA without PE but there is pulmonary edema. No history of heart failure. Admit to the hospitalist service. We will trend troponins and get an echocardiogram. Patient may require stress test. Cardiology will be consulted and patient. Vital Signs Vital signs: Vital Signs Temperature 97.5 F L 07/03/24 07:37 Pulse Rate 79 07/03/24 07:37 Respiratory Rate 15 07/03/24 07:37 Blood Pressure 191/87 H 07/03/24 07:37 Pulse Oximetry 97 07/03/24 07:37 Oxygen Delivery Room Air 07/03/24 07:37 Temperature 97.5 F L 07/03/24 07:37 Pulse Rate 76 07/03/24 10:32 Respiratory Rate 22 H 07/03/24 10:32 Blood Pressure 154/66 H 07/03/24 10:32 Pulse Oximetry 99 07/03/24 10:32 Oxygen Delivery Nasal Cannula 07/03/24 08:16 Oxygen Flow Rate 1 07/03/24 08:16 Medical Decision Making Vital Signs Vital Signs: Vital Signs Temperature 97.5 F L 07/03/24 07:37 Pulse Rate 79 07/03/24 07:37 Respiratory Rate 15 07/03/24 07:37 Blood Pressure 191/87 H 07/03/24 07:37 Pulse Oximetry 97 07/03/24 07:37 Oxygen Delivery Room Air 07/03/24 07:37 Temperature 97.5 F L 07/03/24 07:37 Pulse Rate 76 07/03/24 10:32 Respiratory Rate 22 H 07/03/24 10:32 Blood Pressure 154/66 H 07/03/24 10:32 Pulse Oximetry 99 07/03/24 10:32 Oxygen Delivery Nasal Cannula 07/03/24 08:16 Oxygen Flow Rate 1 07/03/24 08:16 Lab Data 07/03/24 07:43 07/03/24 07:43 Labs: Lab Results 07/03/24 07/03/24 Range/Units 07:43 10:13 WBC 5.5 (4.5-10.0) K/mm3 RBC 4.38 (4.2-5.4) M/mm3 Hgb 13.2 (12.0-15.0) g/dL Hct 41.5 (37.0-47.0) % MCV 94.7 (80-100) fl MCH 30.1 (26-34) pg MCHC 31.8 L (32-36) g/dl RDW 13.1 (11.5-14.5) % Plt Count 125 L (150-375) k/mm3 MPV 10.8 H (7.4-10.4) fl Immature Gran % (Auto) 0.2 (0-0.5) % Neut % (Auto) 57.5 (45.5-73.1) % Lymph % (Auto) 29.6 (18.3-44.2) % [place] % (Auto) 8.5 (2.6-8.5) % Eos % (Auto) 3.5 (0-4.4) % Baso % (Auto) 0.7 (0.2-1.2) % Lymph # (Auto) 1.63 (0.9-3.2) K/mm3 [place] # (Auto) 0.5 (0.1-0.6) K/mm3 Eos # (Auto) 0.2 (0-0.3) K/mm3 Baso # (Auto) 0.0 (0.0-0.1) K/mm3 Abs Immat Gran (auto) 0.01 (0.00-0.031) K/mm3 Absolute Neuts (auto) 3.2 (1.3-6.7) K/mm3 Absolute Nucleated RBC 0.000 (0.0-0.012) K/mm3 Nucleated RBC % 0.0 (0.0-0.2) % % Immature Plt Fraction 4.4 (0.9-11.2) % PT 14.5 (11.1-14.7) Seconds INR 1.1 APTT 31.2 (22.3-36.8) Seconds Sodium 140 (137-145) mmol/L Potassium 3.5 (3.4-5.0) mmol/L Chloride 103 (98-107) mmol/L Carbon Dioxide 31 H (22-30) mmol/L Anion Gap 6 (4-12) mmol/L BUN 17 (7-17) mg/dL Creatinine 0.60 L (0.7-1.0) mg/dL Estim Creat Clear Calc 59 ml/min Estimated GFR > 60 (59 - ) Glucose 88 (65-110) mg/dL Calcium 9.4 (8.4-10.2) mg/dL Total Bilirubin 1.0 (0.2-1.3) mg/dL AST 29 (14-36) U/L ALT 23 (6-35) U/L Alkaline Phosphatase 92 (38-126) U/L Troponin I < 0.012 < 0.012 (0.000-0.034) ng/mL NT-Pro-B Natriuret Pep 248 H (19.9-100) pg/mL Total Protein 7.0 (6.3-8.2) g/dL Albumin 4.1 (3.5-5.1) g/dL Lipase 60 (23-300) U/L Influenza A (RT-PCR) Negative (Negative) Influenza B (RT-PCR) Negative (Negative) RSV (RT-PCR) Negative (Negative) SARS-CoV-2 RNA (RT-PCR) Negative (Negative) Imaging Data Radiologist's impression: ITS Impressions Chest X-Ray 07/03/24 07:59 IMPRESSION: No focal infiltrate or effusion. Chest CTA 07/03/24 09:14 IMPRESSION: No pulmonary embolus. No thoracic aortic dissection or dilatation. Findings suggesting pulmonary edema. ECG Data EKG #1: ECG completion date: 07/03/24 ECG completion time: 07:37 EKG Interpretation: normal rate (76), sinus rhythm, non-specific ST changes, normal QRS, normal QT and left axis Discharge Plan Discharge Clinical Impression: Pulmonary edema, Hypoxia Chest pain Qualifiers: Chest pain type: unspecified Qualified Code(s): R07.9 - Chest pain, unspecified Patient Disposition: Still a Patient Condition: Stable
[2024-07-03] MEDS: MORPHINE SULFATE (*CRX) 2 MG/ML INJ IV PUSH (08:28)
--- NOTE | 2024-07-03 10:15 | ECG_ITS ---
Test Date: 2024-07-03 10:30:13 Measurements Intervals [place] Rate: 73 P: 18 IN: 161 QRS: -9 QRSD: 76 T: 21 QT: 410 QTc: 453 Interpretive Statements SINUS RHYTHM CANNOT R/O SEPTAL INFARCT, AGE INDETERMINATE BASELINE ARTIFACT- I, II, III, AVR, AVL ABNORMAL ECG Compared to ECG 07/03/2024 07:37:33 No significant changes Electronically Signed On 07-03-2024 15:31:08 PRECISION INSTRUMENT MAKER by Adarsh Alvarez D.O.
[2024-07-03 10:53] LABS: NT Pro B Type Natriuretic Pept 248 pg/mL (19.9-100)
[2024-07-03 10:54] LABS: Troponin I < 0.012 ng/mL (0.000-0.034)
--- NOTE | 2024-07-03 12:31 | PM.IMHP ---
H&P: HPI History of Present Illness Date/Time: 07/03/24 12:31 Chief Complaint: Chest Pain Narrative: 83 y/o F presents here with chest pain with PMH of hypertension, hyperlipidemia, osteoporosis, parkinsonism, vitamin-D deficiency, and mitral valve prolapse. The patient presents here from home for further evaluation of midsternal chest pain. She reports onset of chest pain yesterday (07/02) for lunch time. She describes the pain as a heaviness, pressure, radiation into the left side of her neck, intermittent, believes they lasted on average about 5 minutes, aggravated by exertion (describes as lingering), and no alleviating factors. The patient's chest pain is accompanied by shortness of breath. She reports the shortness of breath occurs after she walks just a few steps and requires her to rest for a few minutes for it to be alleviated which is not typical for her. No associated lower extremity swelling or weight gain. She denies dizziness, diaphoresis, nausea, palpitations, fatigue, or GERD-like symptoms. The patient took 81 mg of aspirin prior to arrival with slight alleviating effect. Patient received SL nitro in the ED with significantly more relief. She has a history of a mitral valve prolapse with repair in the late and hypertension which was monitored and treated medically, otherwise no other significant cardiac history. 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 Initial VS at presentation: 97.5? F, HR 79, RR 15, 191/87, and 97% on RA. ED workup showed: No leukocytosis, no anemia, no significant electrolyte derangements, creatinine 0.6 and GFR >60, BNP 248 (WNL for age), initial troponin x2 negative. Viral PCR negative. CXR showed no focal infiltrate or effusion. Chest CTA showed no PE, no thoracic aortic dissection, no thoracic aortic dilation, and findings suggesting pulmonary edema. 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 Osteoporosis Osteopenia Parkinsonism Positive JORDAN (antinuclear antibody) MDD (major depressive disorder), recurrent episode, moderate [place] (hard of hearing) High cholesterol Chronic insomnia Arthritis Sacroiliac joint dysfunction of left side Vision loss Family History Family History Father Lung cancer Mother Diabetes mellitus Hypertension Heart disease Grandparent Malignant neoplasm of prostate Grandparent Diabetes mellitus Hypertension Cerebrovascular accident Social History Social History Social History: Smoking status: Never smoker Second hand tobacco smoke exposure: Yes Alcohol intake: never Substance use: never Substance use type: does not use Do You Feel Safe in your Home?: Yes Lack of Transportation: No Lack of Food: Never True Current Housing: I Do Not Have Housing Concerned About Future Housing: No Difficulty Paying Gas/Electric Bills: No Difficulty Paying for Meds: No Currently Unemployed: No Education: High School Diploma/GED Difficulty w/ Childcare or Family Care: No Living arrangements: alone Occupation/Education: retired Gender identity (if verbalized by the patient): Female Sexual Orientation (if Verbalized by the Patient): Straight or Heterosexual Spiritual care concerns: Yes (Gnosticist) Meds Home Medications and Allergies Home Medications ?Medication ?Instructions ?Recorded ?Confirmed ?Type alendronate 70 mg tablet 70 mg PO WEEKLY #14 tabs 05/21/23 07/03/24 Rx aspirin 81 mg tablet,delayed 81 mg PO DAILY 06/04/23 07/03/24 History release (Adult Aspirin Regimen) coenzyme Q10 100 mg capsule (Co 100 mg PO DAILY 06/04/23 07/03/24 History Q-10) atorvastatin 20 mg tablet See Rx Instructions .Route 11/30/23 07/03/24 Rx .COMPLEX #90 tabs citalopram 20 mg tablet See Rx Instructions .Route 12/29/23 07/03/24 Rx .COMPLEX #100 tabs lisinopril 20 mg tablet See Rx Instructions .Route 03/01/24 07/03/24 Rx .COMPLEX #90 tabs ergocalciferol (vitamin D2) 1,250 See Rx Instructions .Route 05/17/24 07/03/24 Rx mcg (50,000 unit) capsule .COMPLEX #4 caps gabapentin 400 mg capsule See Rx Instructions .Route 05/30/24 07/03/24 Rx .COMPLEX #300 caps ropinirole 0.5 mg tablet See Rx Instructions .Route 06/08/24 07/03/24 Rx .COMPLEX #300 tabs meloxicam 15 mg tablet See Rx Instructions .Route 06/13/24 07/03/24 Rx .COMPLEX #90 tabs trazodone 150 mg tablet See Rx Instructions .Route 06/22/24 07/03/24 Rx .COMPLEX #45 tabs Allergies Allergy/AdvReac Type Severity Reaction Status Date / Time No Known Allergies Allergy Verified 07/03/24 07:40 Vital Signs Vital Signs - 24 hr 07/03/24 07:37 07/03/24 07:44 07/03/24 07:44 Temperature 97.5 F L Pulse Rate 79 78 Respiratory Rate 15 Blood Pressure 191/87 H Pulse Oximetry 97 97 Oxygen Delivery Room Air Room Air Oxygen Flow Rate 07/03/24 08:00 07/03/24 08:16 07/03/24 08:18 Temperature Pulse Rate 75 Respiratory Rate 14 Blood Pressure 116/67 Pulse Oximetry 98 96 96 Oxygen Delivery Nasal Cannula Nasal Cannula Oxygen Flow Rate 2 1 07/03/24 08:31 07/03/24 09:54 07/03/24 10:32 Temperature Pulse Rate 64 64 76 Respiratory Rate 21 H 14 22 H Blood Pressure 134/71 152/70 H 154/66 H Pulse Oximetry 97 97 99 Oxygen Delivery Oxygen Flow Rate Exam Const: General: comfortable and no acute distress Other: , female, nontoxic appearance HENMT: Face/Nose/Sinus: Normal nares present Mouth: Yes moist mucous membranes Eyes: General: appearance normal, both eyes and all related structures Sclera: sclerae normal Pupils: Equal, round and reactive pupils present EOM: EOMs intact bilaterally Resp: Effort & Inspection: normal respiratory effort Auscultation: clear to auscultation bilaterally Cardio: Rate: regular rate Rhythm: regular rhythm Other: S1-S2 present without murmur, rub, ectopy Skin: General skin exam: normal color and no rashes or lesions noted Wounds: no wounds Neuro: Speech: normal speech Motor exam (neuro): 5/5 motor strength present throughout Sensory Exam: normal sensation Other: A&O 4 Extrem: General: normal to inspection Psych: Mental Status: mental status grossly normal Affect: normal affect Other: Good insight and judgment, pleasant. H&P: Results Labs Labs: Short CBC 07/03/24 Range/Units 07:43 WBC 5.5 (4.5-10.0) K/mm3 Hgb 13.2 (12.0-15.0) g/dL Hct 41.5 (37.0-47.0) % Plt Count 125 L (150-375) k/mm3 BMP 07/03/24 07:43 Sodium 140 Potassium 3.5 Chloride 103 Carbon Dioxide 31 H BUN 17 Creatinine 0.60 L Glucose 88 Calcium 9.4 Cardiac Enzymes 07/03/24 07/03/24 Range/Units 07:43 10:13 Troponin I < 0.012 < 0.012 (0.000-0.034) ng/mL Liver Function 07/03/24 Range/Units 07:43 Total Bilirubin 1.0 (0.2-1.3) mg/dL AST 29 (14-36) U/L ALT 23 (6-35) U/L Alkaline Phosphatase 92 (38-126) U/L Albumin 4.1 (3.5-5.1) g/dL Assessment and Plan Assessment and plan (1) Chest pain: Qualifiers: Chest pain type: unspecified Qualified Code(s): R07.9 - Chest pain, unspecified Code(s): R07.9 - Chest pain, unspecified Status: Acute Assessment and Plan: - EKG, initial: Sinus rhythm, possible anterior SC of indeterminate age, borderline ST-T-wave abnormality high lateral leads, baseline artifact. - EKG, repeat (1): Sinus rhythm, possible anterior SC of indeterminate age. No significant changes when compared to EKG done earlier today. Awaiting formal read. - CXR: No focal infiltrate or effusion. - CTA chest: No pulmonary embolus. No thoracic aortic dissection or dilatation. Findings suggesting pulmonary edema. - Troponin: <0.012 x2, 6 hour ordered - ASA 324 given and SL nitro PRN - cardiology consulted, awaiting recs - continue daily aspirin and atorvastatin - echo, previous (2022): Normal systolic function, estimated EF 60-65%, grade 1 diastolic dysfunction, mild pulmonary hypertension. See report for full details. - stress test, previous (2022): 1. Normal myocardial perfusion at rest and during stress. 2. Left ventricular ejection fraction measuring 53%. - telemetry monitoring (2) SOB (shortness of breath): Code(s): R06.02 - Shortness of breath Status: Acute Assessment and Plan: - BNP 248, within normal limits for age - most recent echo in 2022, update given new findings suggesting pulmonary edema on CTA - check TSH - monitor I&Os and daily weights - trend renal function (3) Benign essential HTN: Code(s): I10 - Essential (primary) hypertension Status: Acute Assessment and Plan: - chronic, currently 154/66 - continue home medications: Lisinopril 20 mg daily - monitor Plan Diet: Heart healthy GI Prophylaxis: Not currently indicated DVT Prophylaxis: SCDs Lines: Peripheral Code Status: Full code Quality VTE Prophylaxis VTE prophylaxis: mechanical ordered Hospitalist MIPS Advance Care Plan I have confirmed that the patient's Advanced Care Plan is present, code status is documented, or surrogate decision maker is listed in patient medical record.: Yes Medication Reconciliation I have utilized all available resources to obtain, update and review the patients current medications (includes all prescriptions, OTC, herbals, cannabis, and nutritional supplements).: Yes
--- NOTE | 2024-07-03 13:58 | ADMGEN ---
This patient, Jenna Hamm, was admitted to 3 [facility] Surg Room 307-02. Patient/family oriented to hospital policies and general routines including ID bracelet, bed and alarms, visiting hours, pain management, procedures, bathroom and other care routines, personal items, smoking policy, room service/diet, and visiting hours. Information on how to activate the Rapid Response Team has been discussed. Patient/Family are encouraged to report perceived risks to care and to ask questions if they do not understand what they are told or what they should do.
[2024-07-03 14:40] LABS: Troponin I < 0.012 ng/mL (0.000-0.034)
[2024-07-03] MEDS: GABAPENTIN 400 MG CAPSULE PO (15:13)
[2024-07-03] MEDS: rOPINIRole HCL 0.5 MG TABLET 1 MG PO ×2 (15:13→21:10)
[2024-07-03] MEDS: FUROSEMIDE INJ 40 MG/4 ML VIAL 20 MG IV PUSH (18:49)
[2024-07-03] MEDS: POTASSIUM CHLORIDE 20 MEQ ER TABLET 40 MEQ PO (18:49)
--- NOTE | 2024-07-03 18:58 | P.CONCA_ITS ---
Assessment and Plan Assessment and plan (1) Chest pain: Qualifiers: Chest pain type: unspecified Qualified Code(s): R07.9 - Chest pain, unspecified Code(s): R07.9 - Chest pain, unspecified Status: Acute Assessment and Plan: Obtain lexiscan myoview stress test in AM. (2) Benign essential HTN: Code(s): I10 - Essential (primary) hypertension Status: Acute Assessment and Plan: High. Start Spironolactone 25 mg daily. Continue Lisinopril. (3) High cholesterol: Code(s): E78.00 - Pure hypercholesterolemia, unspecified Status: Acute Assessment and Plan: On Atorvastatin. (4) SOB (shortness of breath): Code(s): R06.02 - Shortness of breath Status: Acute Assessment and Plan: Obtain echo. Lasix 20 mg IVx1 with KCl 40 meq x1. History of Present Illness History of Present Illness Consult date/time: 07/03/24 18:58 Reason For Visit: chest pain,pulmonary edema,hypoxia,hypertension Narrative: 83 yr old woman who is my regular cardiology patient presents to ER with chest pain. She has a history of hypertension, dyslipidemia, essential tremor, covid infection on 04/27/21. Her daughter and son are at bedside. States she is having intermittent chest tightness on left side side of chest radiating to left shoulder/neck area at rest. Reports she may have GARIBAY walking 1 block or upstairs. States both arms and legs have tingling and numbness. Denies orthopnea, PND, edema, palpitations. Cardiovascular Procedures Electrophysiology:: 10/21/22 EKG: Sinus rhythm, delayed precordial R/S transition. Stress Tests:: 04/04/22 Carotid duplex: <50% ICA stenosis bilaterally. Review of Systems 2 Review of Systems: All systems reviewed & are unremarkable except as noted in HPI and below Constitutional: Constitutional: Reports as per HPI, Denies chills and Denies fever(s) Cardiovascular: Cardiovascular: Reports as per HPI, Reports chest pain and Denies leg edema Respiratory: Respiratory: Reports as per HPI and Reports dyspnea on exertion Gastrointestinal: Gastrointestinal: Reports as per HPI and Denies abdominal pain Genitourinary: Genitourinary: Reports as per HPI and Denies dysuria Musculoskeletal: Musculoskeletal: Reports as per HPI Neurologic: Reports as per HPI, Denies dizziness and Denies syncope [facility] Past Medical History Medical History (Updated 07/03/24 @ 19:03 by Adarsh Alvarez DO) High cholesterol Benign essential HTN Internal hemorrhoids Cataract CTS (carpal tunnel syndrome) Vitamin D deficiency Trochanteric bursitis, right hip Trochanteric bursitis, left hip Spondylosis of lumbar spine Spasmodic dysphonia Post-menopausal Osteoporosis Osteopenia Parkinsonism Positive JORDAN (antinuclear antibody) MDD (major depressive disorder), recurrent episode, moderate [place] (hard of hearing) Chronic insomnia Arthritis Sacroiliac joint dysfunction of left side Vision loss Family History Family History Father Lung cancer Mother Diabetes mellitus Hypertension Heart disease Grandparent Malignant neoplasm of prostate Grandparent Diabetes mellitus Hypertension Cerebrovascular accident Social History Social History Social History: Smoking status: Never smoker Second hand tobacco smoke exposure: Yes Alcohol intake: never Substance use: never Substance use type: does not use Do You Feel Safe in your Home?: Yes Lack of Transportation: No Lack of Food: Never True Current Housing: I Do Not Have Housing Concerned About Future Housing: No Difficulty Paying Gas/Electric Bills: No Difficulty Paying for Meds: No Currently Unemployed: No Education: High School Diploma/GED Difficulty w/ Childcare or Family Care: No Living arrangements: alone Occupation/Education: retired Gender identity (if verbalized by the patient): Female Sexual Orientation (if Verbalized by the Patient): Straight or Heterosexual Spiritual care concerns: Yes (Zoroastrian) Meds Home Medications and Allergies Home Medications ?Medication ?Instructions ?Recorded ?Confirmed ?Type alendronate 70 mg tablet 70 mg PO WEEKLY #14 tabs 05/21/23 07/03/24 Rx aspirin 81 mg tablet,delayed 81 mg PO DAILY 06/04/23 07/03/24 History release (Adult Aspirin Regimen) coenzyme Q10 100 mg capsule (Co 100 mg PO DAILY 06/04/23 07/03/24 History Q-10) atorvastatin 20 mg tablet See Rx Instructions .Route 11/30/23 07/03/24 Rx .COMPLEX #90 tabs citalopram 20 mg tablet See Rx Instructions .Route 12/29/23 07/03/24 Rx .COMPLEX #100 tabs lisinopril 20 mg tablet See Rx Instructions .Route 03/01/24 07/03/24 Rx .COMPLEX #90 tabs ergocalciferol (vitamin D2) 1,250 See Rx Instructions .Route 05/17/24 07/03/24 Rx mcg (50,000 unit) capsule .COMPLEX #4 caps gabapentin 400 mg capsule See Rx Instructions .Route 05/30/24 07/03/24 Rx .COMPLEX #300 caps ropinirole 0.5 mg tablet See Rx Instructions .Route 06/08/24 07/03/24 Rx .COMPLEX #300 tabs meloxicam 15 mg tablet See Rx Instructions .Route 06/13/24 07/03/24 Rx .COMPLEX #90 tabs trazodone 150 mg tablet See Rx Instructions .Route 06/22/24 07/03/24 Rx .COMPLEX #45 tabs Allergies Allergy/AdvReac Type Severity Reaction Status Date / Time No Known Allergies Allergy Verified 07/03/24 07:40 Vital Signs Vital Signs - 24 hr 07/03/24 07:37 07/03/24 07:44 07/03/24 07:44 Temperature 97.5 F L Pulse Rate 79 78 Respiratory Rate 15 Blood Pressure 191/87 H Pulse Oximetry 97 97 Oxygen Delivery Room Air Room Air Oxygen Flow Rate 07/03/24 08:00 07/03/24 08:16 07/03/24 08:18 Temperature Pulse Rate 75 Respiratory Rate 14 Blood Pressure 116/67 Pulse Oximetry 98 96 96 Oxygen Delivery Nasal Cannula Nasal Cannula Oxygen Flow Rate 2 1 07/03/24 08:31 07/03/24 09:54 07/03/24 10:32 Temperature Pulse Rate 64 64 76 Respiratory Rate 21 H 14 22 H Blood Pressure 134/71 152/70 H 154/66 H Pulse Oximetry 97 97 99 Oxygen Delivery Oxygen Flow Rate 07/03/24 13:07 07/03/24 14:00 07/03/24 15:34 Temperature 97.5 F L 97.7 F Pulse Rate 63 66 Respiratory Rate 16 16 Blood Pressure 185/71 H 193/76 H Pulse Oximetry 97 98 97 Oxygen Delivery Room Air Oxygen Flow Rate 07/03/24 16:32 Temperature Pulse Rate Respiratory Rate Blood Pressure 170/59 H Pulse Oximetry Oxygen Delivery Oxygen Flow Rate Exam 2 Const: General: cooperative, healthy appearing and comfortable Resp: Auscultation: clear to auscultation bilaterally, no crackles, no rales, no rhonchi and no wheezes Cardio: Rate: regular rate Rhythm: regular rhythm Heart sounds: no murmurs Peripheral pulses: dorsalis pedis present GI: GI Palp: No abdominal tenderness and Yes Soft to palpation Neuro: General: oriented to person, oriented to place and oriented to time Extrem: Right lower extremity: no edema Left lower extremity: no edema Results Labs and Meds 07/03/24 07:43 07/03/24 07:43 Lab results: Cardiac Enzymes 07/03/24 07/03/24 07/03/24 Range/Units 07:43 10:13 14:13 AST 29 (14-36) U/L Troponin I < 0.012 < 0.012 < 0.012 (0.000-0.034) ng/mL Coagulation 07/03/24 Range/Units 07:43 PT 14.5 (11.1-14.7) Seconds APTT 31.2 (22.3-36.8) Seconds CBC 07/03/24 Range/Units 07:43 WBC 5.5 (4.5-10.0) K/mm3 RBC 4.38 (4.2-5.4) M/mm3 Hgb 13.2 (12.0-15.0) g/dL Hct 41.5 (37.0-47.0) % Plt Count 125 L (150-375) k/mm3 Lymph # (Auto) 1.63 (0.9-3.2) K/mm3 [place] # (Auto) 0.5 (0.1-0.6) K/mm3 Eos # (Auto) 0.2 (0-0.3) K/mm3 Baso # (Auto) 0.0 (0.0-0.1) K/mm3 Comprehensive Metabolic Panel 07/03/24 Range/Units 07:43 Sodium 140 (137-145) mmol/L Potassium 3.5 (3.4-5.0) mmol/L Chloride 103 (98-107) mmol/L Carbon Dioxide 31 H (22-30) mmol/L BUN 17 (7-17) mg/dL Creatinine 0.60 L (0.7-1.0) mg/dL Glucose 88 (65-110) mg/dL Calcium 9.4 (8.4-10.2) mg/dL AST 29 (14-36) U/L ALT 23 (6-35) U/L Alkaline Phosphatase 92 (38-126) U/L Total Protein 7.0 (6.3-8.2) g/dL Albumin 4.1 (3.5-5.1) g/dL Intake and Output 07/03/24 07/03/24 07/03/24 07:59 15:59 23:59 Intake Total 120 Balance 120 Intake: Oral 120 Other: # Unmeasured Voids 1 Patient Weight 07/03/24 23:59 Weight 73 kg
[2024-07-03] MEDS: traZODone HCL 25 MG TABLET 75 MG PO (21:20)
[2024-07-04] VITALS (7 sets, daily range): BP systolic 163–185; BP diastolic 78–79; PULSE 58–72; RESP 16–18; TEMP 35.7–36.7; O2SAT 92–100
--- NOTE | 2024-07-04 06:00 | ECHO_ITS ---
Patient Info Name: Jenna Hamm Age: 83 years : 1940 Gender: Female Ht: 63 in Wt: 160 lbs BSA: 1.82 m2 HR: 58 bpm BP: 181 / 75 mmHg Heart Rhythm: Sinus Rhythm Technical Quality: Good Exam Date: 07/04/2024 7:56 AM Exam Location: Echo Lab Patient Status: Inpatient Admit Date: 07/03/2024 Staff Ordering Physician: Ru Dudley MD Junior Java Developer: Sayda Andrews RDCS Attending Provider: Ortega Quijano MD Referring Physician: Luis Enrique ARMAS; Exam Type: CA echo doppler color flow Study Info Indications - new pulmonary edema Complete two-dimensional, color flow and Doppler transthoracic echocardiogram is performed. Summary 1. Complete two-dimensional, color flow and Doppler transthoracic echocardiogram is performed. 2. Left ventricular chamber dimension is normal. 3. Left ventricular systolic function is normal, estimated at 60-65%. 4. The left ventricular diastolic function is grade I diastolic dysfunction. 5. E/e' 16 is elevated. 6. Left atrial chamber dimension is mildly enlarged. 7. There is mild aortic valve sclerosis. 8. There is trace aortic valve regurgitation. 9. No pulmonary hypertension, estimated pulmonary arterial systolic pressure is 26 mmHg. 10. There is small circumferential pericardial effusion. Left Ventricle E/e' 16 is elevated. Left ventricular chamber dimension is normal. Left ventricular systolic function is normal, estimated at 60-65%. The left ventricular diastolic function is grade I diastolic dysfunction. Right Ventricle Right ventricular systolic function is normal and with normal TAPSE 2.0 cm. Right ventricular chamber dimension is normal. Left Atria Left atrial chamber dimension is mildly enlarged. Right Atria Right atrial chamber dimension is normal. Aortic Valve The aortic valve is trileaflet. There is mild aortic valve sclerosis. There is no aortic valve stenosis. There is trace aortic valve regurgitation. Pulmonic Valve There is no pulmonic regurgitation. Mitral Valve There is no mitral valve stenosis. There is no mitral valve regurgitation. Tricuspid Valve There is no tricuspid valve regurgitation. No pulmonary hypertension, estimated pulmonary arterial systolic pressure is 26 mmHg. Pericardium/Pleural No cardiac tamponade. There is small circumferential pericardial effusion. Inferior Vena Cava Normal inferior vena cava with >50% collapse upon inspiration consistent with normal right atrial pressure, 5 mmHg. Aorta The aortic root size at the sinus of Valsalva is normal. Left Ventricular Outflow Tract Name Value Normal LVOT 2D LVOT Diameter 2.0 cm LVOT Doppler LVOT Peak Gradient 3 mmHg LVOT Mean Gradient 2 mmHg LVOT VTI 21 cm LVOT VTI/AV VTI Ratio 0.8 LVOT Stroke Volume 66 ml LVOT CO 4.6 l/min LVOT CI 2.5 l/min/m2 Pulmonic Valve Name Value Normal RVOT Doppler RVOT Peak Gradient 1 mmHg PV Doppler PV Peak Gradient 3 mmHg Mitral Valve Name Value Normal MV Doppler MV Decel [place] 353 cm/s2 MV PHT 64 ms MV Area (PHT) 3.4 cm2 4.0-5.0 MV Diastolic Function MV E Peak Velocity 78 cm/s MV A Peak Velocity 114 cm/s MV E/A 0.7 MV Decel Time 221 ms MV Annular TDI MV E/e' (Septal) 18.5 <=8.0 MV E/e' (Lateral) 14.5 <=8.0 MV E/e' (Average) 16.5 Tricuspid Valve Name Value Normal TV Regurgitation Doppler TR Peak Velocity 231 cm/s TR Peak Gradient 21 mmHg Estimated PAP/RSVP RA Pressure 5 mmHg <=5 PA Systolic Pressure 26 mmHg <36 RV Systolic Pressure 26 mmHg <36 Aorta Name Value Normal Ascending Aorta Ao Root Diameter (MM) 3.1 cm Ao Root Diam Index (MM) 1.7 cm/m2 Aortic Valve Name Value Normal AV Doppler AV Peak Velocity 128 cm/s AV Peak Gradient 7 mmHg AV Mean Gradient 3 mmHg AV VTI 26 cm AV Area (Cont Eq VTI) 2.5 cm2 >=3.0 AV Area (Cont Eq Miguel) 2.1 cm2 AV Regurgitation 2D LVOT Area 3.1 cm2 Ventricles Name Value Normal LV Dimensions 2D/MM IVS Diastolic Thickness (2D) 1.1 cm 0.6-1.0 LVID Diastole (2D) 4.7 cm 3.8-5.2 LVIW Diastolic Thickness (2D) 1.0 cm 0.6-0.9 LVID Systole (2D) 3.2 cm 2.2-3.5 LVOT Diameter 2.0 cm LV Mass (2D Cubed) 181.48 g 67.00-162.00 LV Mass Index (2D Cubed) 100 g/m2 43-95 Relative Wall Thickness (2D) 0.43 LV Fractional Shortening/Ejection Fraction 2D/MM LV Fractional Shortening (2D) 32 % 27-45 LV EF (2D Teicholz) 60 % 54-74 LV Diastolic Volume (4C MOD) 58 ml LV EF (4C MOD) 62 % LV Diastolic Volume (2C MOD) 61 ml LV EF (2C MOD) 66 % LV Diastolic Volume (BP MOD) 61 ml 46-106 LV Diastolic Volume Index (BP MOD) 34 ml/m2 29-61 LV Systolic Volume (BP MOD) 22 ml 14-42 LV Systolic Volume Index (BP MOD) 12 ml/m2 8-24 LV EF (BP MOD) 65 % 54-74 LV Diastolic Length (4C) 6.7 cm LV Systolic Length (4C) 5.8 cm LV Stroke Volume (4C MOD) 36 ml Atria Name Value Normal LA Dimensions LA Dimension (MM) 3.7 cm 2.7-3.8 LA Volume (4C A-L) 61 ml LA Volume (BP A-L) 62 ml RA Dimensions RA Area (4C) 10.0 cm2 <=18.0 Report Signatures
[2024-07-04] MEDS: rOPINIRole HCL 0.5 MG TABLET 1 MG PO ×2 (06:23→12:49)
--- NOTE | 2024-07-04 07:55 | P.PNCA_ITS ---
Progress Note: A&P Assessment and Plan (1) Chest pain: Qualifiers: Chest pain type: unspecified Qualified Code(s): R07.9 - Chest pain, unspecified Code(s): R07.9 - Chest pain, unspecified Status: Acute Assessment and Plan: Obtain lexiscan myoview stress test. If normal, no further cardiac workup is needed at this time. (2) Benign essential HTN: Code(s): I10 - Essential (primary) hypertension Status: Acute Assessment and Plan: High. Start Spironolactone 25 mg daily. Continue Lisinopril. (3) High cholesterol: Code(s): E78.00 - Pure hypercholesterolemia, unspecified Status: Acute Assessment and Plan: On Atorvastatin. (4) SOB (shortness of breath): Code(s): R06.02 - Shortness of breath Status: Acute Assessment and Plan: Obtain echo. Subjective Date/time seen: 07/04/24 07:55 Interval history: Denies chest pain or sob right now. Exam Const: General: cooperative, healthy appearing and comfortable Orientation/consciousness: oriented to person, oriented to place and oriented to time Resp: Auscultation: clear to auscultation bilaterally, no crackles, no rales, no rhonchi and no wheezes Cardio: Rate: regular rate Rhythm: regular rhythm Heart sounds: no murmurs Peripheral pulses: dorsalis pedis present Neuro: General: oriented to person, oriented to place and oriented to time Extrem: Right lower extremity: no edema Left lower extremity: no edema Objective Data Vital Signs Vital Signs: Vital Signs - 24 hr 07/03/24 08:00 07/03/24 08:16 07/03/24 08:18 Temperature Pulse Rate 75 Respiratory Rate 14 Blood Pressure 116/67 Pulse Oximetry 98 96 96 Oxygen Delivery Nasal Cannula Nasal Cannula Oxygen Flow Rate 2 1 07/03/24 08:31 07/03/24 09:54 07/03/24 10:32 Temperature Pulse Rate 64 64 76 Respiratory Rate 21 H 14 22 H Blood Pressure 134/71 152/70 H 154/66 H Pulse Oximetry 97 97 99 Oxygen Delivery Oxygen Flow Rate 07/03/24 13:07 07/03/24 14:00 07/03/24 15:34 Temperature 97.5 F L 97.7 F Pulse Rate 63 66 Respiratory Rate 16 16 Blood Pressure 185/71 H 193/76 H Pulse Oximetry 97 98 97 Oxygen Delivery Room Air Oxygen Flow Rate 07/03/24 16:32 07/03/24 20:00 07/03/24 22:00 Temperature 97.9 F Pulse Rate 68 62 Respiratory Rate 20 Blood Pressure 170/59 H 181/75 H Pulse Oximetry 97 Oxygen Delivery Oxygen Flow Rate 07/04/24 00:00 07/04/24 04:00 07/04/24 06:00 Temperature 98.1 F Pulse Rate 60 58 L 72 Respiratory Rate 16 Blood Pressure 185/79 H Pulse Oximetry 92 Oxygen Delivery Oxygen Flow Rate Intake/Output Intake/Output: Intake & Output 07/01/24 07/02/24 07/03/24 07/04/24 23:59 23:59 23:59 23:59 Intake Total 120 200 Balance 120 200 Meds/Results Medications: Active Medications Generic Name Dose Route Start Last Admin Trade Name Freq PRN Reason Stop Dose Admin Acetaminophen 650 mg 07/03/24 10:19 Acetaminophen 325 Mg Tablet PO Q4H PRN Mild Pain (1-3) or Fever Hydrocodone Bitart/Acetaminophen 1 tab 07/03/24 10:19 Hydrocodone/Acetaminophen (*Crx) 5-325 Mg Tablet PO Q4H PRN Pain Rated 4-6 Alendronate Sodium 70 mg 07/09/24 06:30 Alendronate Sodium 70 Mg Tablet PO Sa@0630 [facility] Amlodipine Besylate 5 mg 07/04/24 09:00 Amlodipine Besylate 5 Mg Tablet PO DAILY [facility] Aspirin 81 mg 07/04/24 09:00 Aspirin 81 Mg Enteric Tablet PO DAILY [facility] Atorvastatin Calcium 20 mg 07/04/24 09:00 Atorvastatin 20 Mg Tablet PO DAILY [facility] Citalopram Hydrobromide 20 mg 07/04/24 09:00 Citalopram Hydrobromide 20 Mg Tablet PO DAILY [facility] Ergocalciferol 50,000 units 07/09/24 09:00 Ergocalciferol 50,000 Units Capsule PO WEEKLY [facility] Gabapentin 400 mg 07/03/24 13:00 07/03/24 16:54 Gabapentin 400 Mg Capsule PO Not Given TID [facility] Lisinopril 20 mg 07/04/24 09:00 Lisinopril 20 Mg Tablet PO DAILY [facility] Meloxicam 15 mg 07/04/24 09:00 Meloxicam 7.5 Mg Tablet PO QAM [facility] Morphine Sulfate 2 mg 07/03/24 10:19 Morphine Sulfate (*Crx) 2 Mg/Ml Inj IV PUSH Q2H PRN Pain Rated 7-10 Nitroglycerin 0.4 mg 07/03/24 12:57 Nitroglycerin Sl 0.4 Mg Tablet SUBLINGUAL Q5MIN PRN Chest Pain Non-Formulary Medication 100 mg 07/04/24 09:00 Coenzyme Q10 [Co Q-10] PO 07/04/24 09:01 DAILY [facility] Ondansetron HCl 4 mg 07/03/24 10:19 Ondansetron Inj 4 Mg/2 Ml Vial IV PUSH Q4H PRN Nausea Perflutren Lipid Microsphere 0 ml 07/03/24 10:19 Perflutren Lipid Microspheres 1.5 Ml Vial Diluted To 10 Ml Total Volume IV PUSH 07/06/24 10:21 ONCE PRN adequate visualization Protocol Ropinirole HCl 1 mg 07/03/24 14:00 07/04/24 06:23 Ropinirole Hcl 0.5 Mg Tablet PO 1 mg Q8HR MICHELLE Administration Spironolactone 25 mg 07/04/24 09:00 Spironolactone 25 Mg Tablet PO QAM MICHELLE Trazodone HCl 75 mg 07/03/24 21:00 07/03/24 21:20 Trazodone Hcl 25 Mg Tablet PO 25 mg HS PRN Administration insomnia Radiology Results: ITS Impressions Chest X-Ray 07/03/24 07:59 IMPRESSION: No focal infiltrate or effusion. Chest CTA 07/03/24 09:14 IMPRESSION: No pulmonary embolus. No thoracic aortic dissection or dilatation. Findings suggesting pulmonary edema. Labs Labs: Laboratory Results - last 24 hr 07/03/24 07/03/24 07/03/24 07:43 10:13 14:13 PT 14.5 INR 1.1 APTT 31.2 Sodium 140 Potassium 3.5 Chloride 103 Carbon Dioxide 31 H Anion Gap 6 BUN 17 Creatinine 0.60 L Estim Creat Clear Calc 59 Estimated GFR > 60 Glucose 88 Calcium 9.4 Total Bilirubin 1.0 AST 29 ALT 23 Alkaline Phosphatase 92 Troponin I < 0.012 < 0.012 < 0.012 NT-Pro-B Natriuret Pep 248 H Total Protein 7.0 Albumin 4.1 Lipase 60 Influenza A (RT-PCR) Negative Influenza B (RT-PCR) Negative RSV (RT-PCR) Negative SARS-CoV-2 RNA (RT-PCR) Negative
--- NOTE | 2024-07-04 08:00 | EST_ITS ---
Patient Info Name: Jenna Hamm Age: 83 years : 1940 Gender: Female Ht: 63 in Wt: 160 lbs BSA: 1.82 m2 Exam Date: 07/04/2024 9:46 AM Exam Location: Echo Lab Patient Status: Inpatient Admit Date: 07/03/2024 Staff Ordering Physician: Adarsh Alvarez DO Attending Provider: Ortega Quijano MD Exercise Technologist: Cralene Booker RDCS Exercise Physician: Adarsh Alvarez DO Exam Type: CA stress harish w NM Study Info Indications R07.9 - Chest pain, unspecified A regadenoson stress test was performed. Summary 1. 1. Negative lexiscan stress test for ischemic ST changes by ECG criteria. 2. 2. Baseline hypertension. 3. 3. Nuclear scan to follow and will be reported separately. Please correlate with it. 4. 4. Patient informed of the above results. Protocol: Lexiscan Stress ECG Details Stage: REST Duration (min): 2 min : 6 sec HR (bpm): 62 SBP (mmHg): 209 DBP (mmHg): 85 Stage: REST Duration (min): 9 min : 32 sec HR (bpm): 64 SBP (mmHg): 209 DBP (mmHg): 85 Stage: STAGE 1 Duration (min): 1 min : 0 sec HR (bpm): 80 SBP (mmHg): 209 DBP (mmHg): 85 Stage: RECOVERY Duration (min): 1 min : 0 sec HR (bpm): 90 SBP (mmHg): 203 DBP (mmHg): 74 Stage: RECOVERY Duration (min): 2 min : 0 sec HR (bpm): 86 SBP (mmHg): 163 DBP (mmHg): 60 Stage: RECOVERY Duration (min): 3 min : 0 sec HR (bpm): 83 SBP (mmHg): 177 DBP (mmHg): 72 Stage: RECOVERY Duration (min): 3 min : 3 sec HR (bpm): 82 SBP (mmHg): 177 DBP (mmHg): 72 Rest HR: 64 bpm Peak HR: 91 bpm Rest Sys BP: 209 mmHg Peak Sys BP: 203 mmHg Max Pred HR: 138 bpm % Max Pred HR: 66 % Target HR: 117 bpm Max RPP: 18,473 bpm*mmHg Termination Reason: Completed protocol Cardiac Symptoms: Shortness of breath Total Time: 1 min : 0 sec Rest Glover BP: 85 mmHg Peak Glover BP: 74 mmHg Total Dose: 0.4 mg Resting ECG Sinus rhythm. Stress ECG No ST changes. Arrhythmias None. Report Signatures
[2024-07-04 08:34] LABS: Basophils Percent Auto 0.7 % (0.2-1.2); Eosinophils Absolute Auto 0.2 K/mm3 (0-0.3); Eosinophils Percent Auto 4.2 % (0-4.4); Hematocrit 39.2 % (37.0-47.0); Hemoglobin 12.5 g/dL (12.0-15.0); Immature Granulocyte Absolute 0.01 K/mm3 (0.00-0.031); Immature Granulocyte Percent A 0.2 % (0-0.5); Immature Platelet Fraction Pct 4.4 % (0.9-11.2); Lymphocytes Absolute Auto 1.04 K/mm3 (0.9-3.2); Lymphocytes Percent Auto 22.9 % (18.3-44.2); Mean Corpuscular HGB Conc 31.9 g/dl (32-36); Mean Corpuscular Hemoglobin 29.8 pg (26-34); Mean Corpuscular Volume 93.6 fl (80-100); Mean Platelet Volume 11.2 fl (7.4-10.4); Monocytes Absolute Auto 0.5 K/mm3 (0.1-0.6); Monocytes Percent Auto 11.2 % (2.6-8.5); Neutrophils Absolute Auto 2.8 K/mm3 (1.3-6.7); Neutrophils Percent Auto 60.8 % (45.5-73.1); Platelet Count Result 131 k/mm3 (150-375); Red Blood Count 4.19 M/mm3 (4.2-5.4); Red Cell Distribution Width 13.1 % (11.5-14.5); White Blood Count 4.5 K/mm3 (4.5-10.0)
[2024-07-04 08:42] LABS: Alanine Aminotransferase 22 U/L (6-35); Albumin Level 3.6 g/dL (3.5-5.1); Alkaline Phosphatase 84 U/L (38-126); Anion Gap 3 mmol/L (4-12); Aspartate Amino Transferase 28 U/L (14-36); Bilirubin,Total 0.8 mg/dL (0.2-1.3); Blood Urea Nitrogen 16 mg/dL (7-17); Carbon Dioxide 35 mmol/L (22-30); Chloride 102 mmol/L (98-107); Estimated CRCL calculation 53 ml/min; Estimated Glomerular Filt Rate > 60; Glucose 86 mg/dL (65-110); Potassium 4.7 mmol/L (3.4-5.0); Sodium 140 mmol/L (137-145)
[2024-07-04] MEDS: ATORVASTATIN 20 MG TABLET PO (09:03)
[2024-07-04] MEDS: CITALOPRAM HYDROBROMIDE 20 MG TABLET PO (09:03)
[2024-07-04] MEDS: ASPIRIN 81 MG ENTERIC TABLET PO (09:03)
[2024-07-04] MEDS: amLODIPine BESYLATE 5 MG TABLET PO (09:03)
[2024-07-04] MEDS: MELOXICAM 7.5 MG TABLET 15 MG PO (09:03)
[2024-07-04] MEDS: lisinopriL 20 MG TABLET PO (09:03)
[2024-07-04] MEDS: SPIRONOLACTONE 25 MG TABLET PO (09:03)
[2024-07-04] MEDS: GABAPENTIN 400 MG CAPSULE PO ×2 (09:04→12:49)
--- NOTE | 2024-07-04 16:01 | P.DS_ITS ---
DS: Admitting Diagnosis Discharge Date 07/04/2024 Admitting Diagnosis Chest pain DS: Discharge Diagnosis Discharge Diagnosis (1) Chest pain: Qualifiers: Chest pain type: unspecified Qualified Code(s): R07.9 - Chest pain, unspecified Code(s): R07.9 - Chest pain, unspecified Status: Acute Assessment and Plan: Resolved - EKG, initial: Sinus rhythm, possible anterior CA of indeterminate age, borderline ST-T-wave abnormality high lateral leads, baseline artifact. - EKG, repeat (1): Sinus rhythm, possible anterior CA of indeterminate age. No significant changes when compared to EKG done earlier today. Awaiting formal read. - CXR: No focal infiltrate or effusion. - CTA chest: No pulmonary embolus. No thoracic aortic dissection or dilatation. Findings suggesting pulmonary edema. - Troponin: <0.012 x2 Normal - ASA 324 given and SL nitro PRN - cardiology consulted, - continue daily aspirin and atorvastatin - echo, previous (2022): Normal systolic function, estimated EF 60-65%, grade 1 diastolic dysfunction, mild pulmonary hypertension. See report for full details. - stress test, previous (2022): 1. Normal myocardial perfusion at rest and during stress. 2. Left ventricular ejection fraction measuring 53%. 07/04: Patient underwent Vanita scan ,stress nuclear test, and Echocardiogram which shows no significant findings. (2) SOB (shortness of breath): Code(s): R06.02 - Shortness of breath Status: Acute Assessment and Plan: - BNP 248, within normal limits for age - most recent echo in 2022, update given new findings suggesting pulmonary edema on CTA - TSH normal - monitor I&Os and daily weights - trend renal function (3) Benign essential HTN: Code(s): I10 - Essential (primary) hypertension Status: Acute Assessment and Plan: - chronic, currently 154/66 - continue home medications: Lisinopril 20 mg daily - monitor DS: Summary Hospital Course Hospital Course: 83 y/o F presents here with chest pain with PMH of hypertension, hyperlipidemia, osteoporosis, parkinsonism, vitamin-D deficiency, and mitral valve prolapse. The patient presents here from home for further evaluation of midsternal chest pain. She reports onset of chest pain yesterday (07/02) for lunch time. She describes the pain as a heaviness, pressure, radiation into the left side of her neck, intermittent, believes they lasted on average about 5 minutes, aggravated by exertion (describes as lingering), and no alleviating factors. The patient's chest pain is accompanied by shortness of breath. She reports the shortness of breath occurs after she walks just a few steps and requires her to rest for a few minutes for it to be alleviated which is not typical for her. No associated lower extremity swelling or weight gain. She denies dizziness, diaphoresis, na usea, palpitations, fatigue, or GERD-like symptoms. The patient took 81 mg of aspirin prior to arrival with slight alleviating effect. Patient received SL nitro in the ED with significantly more relief. She has a history of a mitral valve prolapse with repair in the late and hypertension which was monitored and treated medically, otherwise no other significant cardiac history. 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 Initial VS at presentation: 97.5? F, HR 79, RR 15, 191/87, and 97% on RA. ED workup showed: No leukocytosis, no anemia, no significant electrolyte derangements, creatinine 0.6 and GFR >60, BNP 248 (WNL for age), initial troponin x2 negative. Viral PCR negative. CXR showed no focal infiltrate or effusion. Chest CTA showed no PE, no thoracic aortic dissection, no thoracic aortic dilation, and findings suggesting pulmonary edema. Patient underwent Vanita scan ,stress nuclear test, and Echocardiogram which shows no significant findings. Patient denies any chest pain,SOB or palpitations upon evaluation. Cardiology added Amlodipine and Spironolactone due to high BP. Patient will continue her home dose lisinopril.Need to follow up with PCP for BP. Status at Discharge Cognitive/behavioral status at discharge: Stable Time Spent with Patient Time attestation: Total time spent providing and/or coordinating discharge services:45 minutes Exam Const: General: comfortable and no acute distress Other: , female, nontoxic appearance HENMT: Face/Nose/Sinus: Normal nares present Mouth: Yes moist mucous membranes Eyes: General: appearance normal, both eyes and all related structures Sclera: sclerae normal Pupils: Equal, round and reactive pupils present EOM: EOMs intact bilaterally Resp: Effort & Inspection: normal respiratory effort Auscultation: clear to auscultation bilaterally Cardio: Rate: regular rate Rhythm: regular rhythm Other: S1-S2 present without murmur, rub, ectopy Skin: General skin exam: normal color and no rashes or lesions noted Wounds: no wounds Neuro: Cranial nerves: Yes Equal, round and reactive pupils present Speech: normal speech Motor exam (neuro): 5/5 motor strength present throughout Sensory Exam: normal sensation Other: A&O 4 Extrem: General: normal to inspection Psych: Mental Status: mental status grossly normal Affect: normal affect Other: Good insight and judgment, pleasant. DS: Data Data Completed and Pending Labs on day of discharge: Labs from last 24 hours 07/04/24 07:46 WBC 4.5 RBC 4.19 L Hgb 12.5 Hct 39.2 MCV 93.6 MCH 29.8 MCHC 31.9 L RDW 13.1 Plt Count 131 L MPV 11.2 H Immature Gran % (Auto) 0.2 Neut % (Auto) 60.8 Lymph % (Auto) 22.9 [place] % (Auto) 11.2 H Eos % (Auto) 4.2 Baso % (Auto) 0.7 Lymph # (Auto) 1.04 [place] # (Auto) 0.5 Eos # (Auto) 0.2 Baso # (Auto) 0.0 Abs Immat Gran (auto) 0.01 Absolute Neuts (auto) 2.8 Absolute Nucleated RBC 0.000 Nucleated RBC % 0.0 % Immature Plt Fraction 4.4 Sodium 140 Potassium 4.7 Chloride 102 Carbon Dioxide 35 H Anion Gap 3 L BUN 16 Creatinine 0.66 L Estim Creat Clear Calc 53 Estimated GFR > 60 Glucose 86 Calcium 9.0 Total Bilirubin 0.8 AST 28 ALT 22 Alkaline Phosphatase 84 Total Protein 6.0 L Albumin 3.6 TSH (Reflex) 1.690 Discharge Plan Discharge Attending physician on discharge: Ortega Quijano Consulting providers: Adarsh Alvarez Discharging Clinician: Ortega Quijano Patient Disposition: Home, Self-Care Activity: as tolerated Diet: heart healthy Discharge Instructions: Patient needs BP follow up with PCP Added Amlodipine and Spironolactone Check blood pressure 1 to 2 times a day. Record and bring into your doctor for review. Call your doctor if your blood pressure is greater than 180/110 or less than 90/45. Walk with cane or other assist device. Take precautions to avoid falls. Rise slowly from a lying or sitting position. Pause before standing or walking. Contact your doctor or call 911 and come to the Emergency Room if you have any type of trauma, lightheadedness with standing or other worrisome symptoms. Avoid NSAIDs (ibuprofen, naproxen, Aleve). Tylenol is safe to take. Follow-up with your primary care provider in 1-2 weeks. Please call for appointment. Follow-up with Cardiology in 2-4 weeks. Please call for an appointment. Thank you for using [facility] for your health care needs. Patient Instructions: Nitroglycerin (By mouth), Spironolactone (By mouth), Amlodipine (By mouth) Patient Language: Portuguese Stand Alone Forms: General Discharge Information Follow-up/Referrals: Adarsh Alvarez DO [Physician] - Alek,Anais Henson MD [Primary Care Provider] - Discharge Medications: New amlodipine [Norvasc] 5 mg Tablet 5 mg PO DAILY Qty: 30 0RF spironolactone 25 mg Tablet 25 mg PO QAM Qty: 30 0RF nitroglycerin [Nitrostat] 0.4 mg Tablet, Sublingual 0.4 mg sublingual Q5MIN PRN (Reason: Chest Pain) Qty: 30 0RF Continued aspirin [Adult Aspirin Regimen] 81 mg tablet,delayed release (DR/EC) 81 mg PO DAILY coenzyme Q10 [Co Q-10] 100 mg capsule 100 mg PO DAILY alendronate 70 mg tablet 70 mg PO WEEKLY Qty: 14 2RF atorvastatin 20 mg tablet See Rx Instructions .ROUTE .COMPLEX Qty: 90 2RF Dose Instruction: Take 1 tablet by mouth once daily Rx Instructions: Take 1 tablet by mouth once daily citalopram 20 mg tablet See Rx Instructions .ROUTE .COMPLEX Qty: 100 1RF Dose Instruction: Take 1 tablet by mouth once daily Rx Instructions: Take 1 tablet by mouth once daily lisinopril 20 mg tablet See Rx Instructions .ROUTE .COMPLEX Qty: 90 1RF Dose Instruction: Take 1 tablet by mouth once daily Rx Instructions: Take 1 tablet by mouth daily ergocalciferol (vitamin D2) 1,250 mcg (50,000 unit) capsule See Rx Instructions .ROUTE .COMPLEX Qty: 4 2RF Dose Instruction: Take 1 capsule by mouth once a week Rx Instructions: Take 1 capsule by mouth once a week gabapentin 400 mg capsule See Rx Instructions .ROUTE .COMPLEX Qty: 300 2RF Dose Instruction: TAKE 1 CAPSULE BY MOUTH THREE TIMES DAILY Rx Instructions: TAKE 1 CAPSULE BY MOUTH THREE TIMES DAILY ropinirole 0.5 mg tablet See Rx Instructions .ROUTE .COMPLEX Qty: 300 1RF Dose Instruction: TAKE 2 TABLETS BY MOUTH THREE TIMES DAILY Rx Instructions: TAKE 2 TABLETS BY MOUTH THREE TIMES DAILY meloxicam 15 mg tablet See Rx Instructions .ROUTE .COMPLEX Qty: 90 2RF Dose Instruction: Take 1 tablet by mouth once daily Rx Instructions: Take 1 tablet by mouth once daily trazodone 150 mg tablet See Rx Instructions .ROUTE .COMPLEX Qty: 45 1RF Dose Instruction: TAKE 1/2 (ONE-HALF) TABLET BY MOUTH EVERY DAY AT BEDTIME NEEDED FOR SLEEP Rx Instructions: TAKE 1/2 (ONE-HALF) TABLET BY MOUTH EVERY DAY AT BEDTIME NEEDED FOR SLEEP Date of admission: 07/03/24 10:20 Primary Care Provider: Alek,Anais Henson Admitting Provider: Ortega Quijano Attending physician on admission: Ortega Quijano Condition: Stable
== END 2024-07-04 17:00 | disposition home or self-care (01) ==
LOC: ANHED 07:42 → ANH3MEDSUR 11:18
PROVIDERS: Student in an Organized Health Care Education/Training Program; Admitting Provider General Practice; Emergency Provider Emergency Medicine; PCP Family Medicine; Visit Provider General Practice
DX: R07.9 Chest pain, unspecified (principal); R06.02 Shortness of breath; I10 Essential (primary) hypertension; E78.00 Pure hypercholesterolemia, unspecified; I34.1 Nonrheumatic mitral (valve) prolapse; G20.C Parkinsonism, unspecified; M81.0 Age-related osteoporosis without current pathological fracture; E55.9 Vitamin D deficiency, unspecified; Z20.822 Contact with and (suspected) exposure to COVID-19; Z79.899 Other long term (current) drug therapy
CPT/HCPCS: 36415; 71045; 71275; 78452; 80053; 83690; 83880; 84443; 84484; 85025; 85055; 85610; 85730; 87637; 93005; 93017; 93306; 96374; 96375; 99285; A9270; A9502; G0378; J1940; J2270; J2785; Q9967

== ENCOUNTER 2024-11-09 14:25 | Outpatient (CLI) | payer MEDICARE, SELFPAY ==
--- NOTE | ~2024-11-09 | MR_ITS ---
MRI of the cervical spine Clinical History: Paresthesia Technique: Axial T2-weighted and gradient images, and sagittal T1-weighted, T2-weighted, and STIR alfredo ges were acquired. Findings: No acute fracture identified. There is minimal grade 1 anterolisthesis of C4 over C5. There is minimal grade 1 retrolisthesis of C5 over C6. No suspicious bone marrow signal abnormality seen. At C2-C3, there is no disc bulge or herniation. There is bilateral facet arthropathy. No central martine l stenosis, cord compression, or neural foraminal narrowing. At C3-C4, there is disc osteophyte complex, most pronounced the left foraminal region, with bilateral facet arthropathy. There is severe left neural foraminal narrowing. Right neural foramen preserved. No canal stenosis or cord compression. At C4-C5, there is minimal disc bulge with bilateral facet arthropathy. Probable mild right neural fo raminal narrowing. Left neural foramen preserved. No canal stenosis or cord compression. At C5-C6, there is degenerative disc narrowing. There is disc osteophyte complex, most pronounced at the right foraminal region with severe right neural foraminal narrowing. Probable mild left neural fo raminal narrowing. There is mild canal stenosis without brandi cord compression. At C6-C7, there is disc osteophyte complex without canal stenosis or cord compression. There is right neural foraminal narrowing. Left neural foramen probably preserved. No abnormal signal seen in the spinal cord. Paravertebral soft tissues are unremarkable. Impression: Moderate degenerative spondylosis, as above, with multilevel neural foraminal narrowing. Reviewed, dictated and finalized at [facility]. Impression: Moderate degenerative spondylosis, as above, with multilevel neural foraminal n arrowing.
--- NOTE | ~2024-11-09 | MR_ITS ---
MRI of the brain Clinical History: Paresthesia Technique: Axial and sagittal T1-weighted images were acquired. These were followed by axial T2-weigh christen, diffusion weighted, gradient, and FLAIR images. Findings: There is no acute infarct, intracranial hemorrhage, or mass lesion. There is focal FLAIR hy perintensity in the right basal ganglia. Ventricles and subarachnoid spaces are unremarkable. Orbits are unremarkable. Paranasal sinuses and m astoid air cells are clear. Major intracranial flow voids are intact. Sagittal midline structures are intact. IMPRESSION: No acute infarct, intracranial hemorrhage, or mass lesion. Focal FLAIR hyperintensity at the right basal ganglia, likely focal chronic microvascular ischemic ch josephine. Reviewed, dictated and finalized at location M. IMPRESSION: No acute infarct, intracranial hemorrhage, or mass lesion. Focal FLAIR hyperintensity at the right basal ganglia, likely focal chronic faye rovascular ischemic change.
== END 2024-11-09 14:26 | disposition home or self-care (01) ==
PROVIDERS: PCP Family Medicine; Visit Provider Nurse Practitioner Gerontology
DX: R90.89 Other abnormal findings on diagnostic imaging of central nervous system (principal); M47.812 Spondylosis without myelopathy or radiculopathy, cervical region; R42 Dizziness and giddiness
CPT/HCPCS: 70551; 72141

== ENCOUNTER 2025-02-28 14:18 | Outpatient (CLI) | payer MEDICARE, SELFPAY ==
--- NOTE | ~2025-02-28 | DEXA_ITS ---
Bone Density Report Name: HEATH JOHNSTON Age: 84 Sex: Female Ethnicity: White Date of : 1940 Indication: osteopenia; height loss; Referring Provider: BRIAN MARTIN Study: Bone densitometry was performed. Exam Date: February 28, 2025 Accession number: [id number] Bone Density: Region BMD T-score Z-score Classification AP Spine(L2, L3, L4) 1.199 1.1 4.0 Normal Femoral Neck (Left) 0.593 -2.3 0.2 Osteopenia Total Hip (Left) 0.791 -1.2 1.0 Osteopenia Femoral Neck (Right) 0.697 -1.4 1.1 Osteopenia Total Hip (Right) 0.869 -0.6 1.7 Normal Total Hip Mean 0.830 -0.9 1.4 Normal World Health Organization criteria for BMD impression classify patients as: Normal (T-score at or above -1.0), Osteopenia (T-score between -1.0 and -2.5), or Osteoporosis (T-score at or below -2.5). 10-year Fracture Risk(1): Major Osteoporotic Fracture 17% Hip Fracture 5.6% Reported Risk Factors: [place] (), Neck BMD=0.593, BMI=28.3 (1) FRAX(R) Version 3.08. Fracture probability calculated for an untreated patient. Fracture probability may be lower if the patient has received treatment. Previous Exams: Region Exam Age BMD T-score BMD Change BMD Change Date g/cm2 vs Baseline vs Previous Total Hip(Left) 02/28/2025 84 0.791 -1.2 0.058 (7.9%)* 0.058 (7.9%)* 09/16/2022 82 0.733 -1.7 Total Hip(Right) 02/28/2025 84 0.869 -0.6 0.104 (13.7%)* 0.104 (13.7%)* 09/16/2022 82 0.765 -1.5 *Denotes significance at 95% confidence level, LSC for Total Hip = 0.027 g/cm2 Clinical Information Provided by Patient: Has used the following medications: Vitamin D, Calcium Patient maximum height was 63.5 Menopause Age: 51 No regular weight bearing exercise Drinks caffeinated beverages Onset of menses at age 15 Number of children 4 Impression: The patient has low bone mass, based on the Left Femoral Neck T-score. The patient has an estimated ten-year risk of hip fracture of 5.6% and an estimated ten-year risk of major fracture of 17%, based on the WHO FRAX algorithm. No significant bone loss was observed. Discussion: BONE DENSITY IS LOW AT ONE OR MORE SKELETAL SITES. THE PATIENT'S BMD AND CLINICAL RISK FACTORS CONTRIBUTE TO THIS PATIENT'S INCREASED RISK OF FRACTURE. This patient's lowest T-score is low at one or more skeletal sites. It meets the World Health Organization's (WHO) criteria for ?low bone mass? (T-score between -1.0 and -2.5). The patient's 10-year risk of hip fracture as calculated by FRAX exceeds the threshold where pharmacological therapy is recommended by the National Osteoporosis Foundation (NOF). However, all treatment decisions require clinical judgment and consideration of individual patient factors, including patient preferences, comorbidities, previous drug use, risk factors not captured in the FRAX model (e.g., frailty, falls, vitamin D deficiency, increased bone turnover, interval significant decline in bone density) and possible under or overestimation of fracture risk by FRAX. The patient should follow a healthful lifestyle (good nutrition with adequate calcium and vitamin D, and appropriate weight-bearing exercise). Follow-Up: Consider a repeat BMD and Vertebral Fracture Assessment (VFA) exam in 2 years or sooner if medically necessary, to reassess this patient's status. Reported by: JIE on 02/28/2025 3:04:00 PM. Reviewed, dictated and finalized at location A.
--- OUTSIDE RECORDS SUMMARY | 2025-02-28 16:15 | XMS_ITS | Clinical Summary ---
Author Organization [facility] Address [address] [place] [address] Care Team Providers Care Director Of Scout Work Name Role Phone Antonietta Gómez MD Primary Care Provider Allergies No known active allergies Medications atorvastatin (LIPITOR) 20 mg tablet Take 0.5 tablets (10 mg total) by mouth daily 1 08/10/2018 Active xbkvd-2-ybj-epa -dpa-fish oil 1,050-1,200 mg capsule Take 1 capsule by mouth daily Active lmp-I5-inc07-zi ay-swv-xfzl-bor 600 mg calcium- 800 unit-50 mg tablet [...] daily Active glucosamine/cho ndroitin/C/Tim (glucosamine-ch ondroit-vit C-Mn) 143-386-35-5 mg tablet Take 1 tablet by mouth [...] FRUIT ORAL Take by mouth Activ e amLODIPine (NORVASC) 5 mg tablet Take 1 tablet (5 mg total) by mouth daily 08/05/2024 Active spironolactone (ALDACTONE) 25 mg tablet Take 1 tablet (25 mg total) by mouth every morning 09/10/2024 Active Active Problems Problem Noted Date Diagnosed Date New onset of headaches after age 50 12/15/2024 Paresthesia 12/07/2024 Restless leg syndrome 10/20/2023 Right carpal tunnel syndrome 10/22/2022 Tremor 10/20/2022 Dizziness and giddiness 10/20/2022 Chronic bilateral low back pain 07/04/2022 Essential tremor 03/13/2021 Assessment & Plan [...] had previously been following with [facility], last seen in 2020 with consideration of botox and she is interested in possibly re-exploring this option. Flexible laryngoscopy 09/11/20 revealed no obvious evidence of tremor in the soft palate or oropharynx. When vocalizing there is occasionally some mild tremor and some mild hyperfunction of the vocal cords. Not true spasms and not obvious ongoing rhythmic tremor. Healthy-appearing anatomy throughout. 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 Assessment & Plan (04/29/2021 6:22 PM LUMBER PRESS OPERATOR): NEUROPSYCHOLOGICAL EVALUATION: INTERPRETATION (for Assessment and Plan, see further below) Normal cognitive performance on MMSE; Mildly impaired cognitive performance on MoCA. No evidence of depression on GDS; No evidence of depression on HADS. Mild evidence of anxiety on HADS. No evidence of daytime drowsiness on [place] scale. No evidence of REM Behavior Disorder [...] head tremor is better. This encounter's total nkhm-bf-lmxe time was greater than 30 minutes. I [...] includes, below, the line Ambulatory referral to Neurology. This statement is included as a mandatory component of the note template that I do not have the ability to remove. This statement has no clinical significance. I am NOT ordering a referral to Neurology. Neck pain 11/12/2020 Speech disturbance 11/12/2020 Age-related osteoporosis wit hout current pathological fracture 10/08/2018 Mixed hyperlipidemia 10/08/2018 Essential hypertension 10/08/2018 Anxiety and depression 10/08/2018 Encounters Date Type Department Care Team Description 12/13/2024 1:00 PM CDT Office Visit [facility] Neurology [address] [place] [phone] Mary Mason NP Tremor (Primary Dx); Speech disturbance, unspecified type; Neck pain; New onset of headaches after age 50; Dizziness and giddiness; Chronic bilateral low back pain, unspecified whether sciatica present 12/09/2024 Results Follow-Up [facility] Neurology [address] [place] [phone] Mary Mason NP EMG/NCV - 12/07/2024 11:30 AM CDT Procedure visit [facility] Neurology [address] [place] [phone] Eliot Leyva Si, MD Paresthesia from Last 3 Months Immunizations Immunization Administration Dates Next Due Influenza, [...] on file Legal Sex Female 5:37 PM LUMBER PRESS OPERATOR Gender Identity Not on file Sexual Orientation Not on file 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 Not on file Not on file Not on file Obstetrics History Last Filed Vital Signs Vital Sign Reading Time Taken Comments Blood Pressure 110/50 12/13/2024 12:59 PM CDT Pulse 69 12/13/2024 12:59 PM CDT Temperature 36.1 C (96.9 F) 01/21/2024 9:01 AM CDT Respiratory Rate 19 10/27/2022 11:40 AM CDT Oxygen Saturation 98% 09/22/2024 12:53 PM CDT Inhaled Oxygen Concentration - - Weight 72.6 kg (160 lb) 12/13/2024 12:59 PM CDT Height 160 cm (5' 3) 12/13/2024 12:59 PM CDT Body Mass Index 28.34 12/13/2024 12:59 PM CDT Plan of Treatment Health Maintenance Due Date Last Done Comments DTaP/Tdap/Td Vaccine (1 - Tdap) 1952 Hepatitis B Screening 08/15/1959 Zoster Vaccine (1 of 2) 08/15/1991 Well Visit 65+ 2006 Pneumococcal vaccine 65+ (2 of 2 - PCV) 03/19/2017 03/19/2016 Osteoporosis Screening-Bone Density Scan 10/22/2020 10/22/2018 Depression Screening 03/13/2022 03/13/2021 Fall Risk Assessment 10/28/2023 10/27/2022 Influenza Vaccine (#1) 2025 0, 03/09/2018, 04/01/2017 Procedures Procedure Name Priority Date/Time Associated Diagnosis Comments EMG/NCV Routine 12/07/2024 11:51 AM CDT Paresthesia DEXA AXIAL SKELETON BONE DENSITY 1 OR MORE SITES 10/22/2018 9:53 AM CDT from Last 3 Months or Most Recently Relevant to Health Maintenance Results * EMG/NCV (12/07/2024 11:51 AM CDT) Anatomical Region Laterality Modality Other Narrative 12/07/2024 11:51 AM CDT Eliot Leyva Si, MD 12/09/2024 9:36 AM EMG/NCV - Date/Time: 12/07/2024 11:51 AM Performed by: Eliot Leyva Si, MD Authorized by: Mary Mason NP Local anesthesia used: no Anesthesia: Local anesthesia used: no Sedation: Patient sedated: no Comments: See attached procedure documentation. Mary Mason NP NEUROLOGY ORDERABLES Final R esult * Dexa Axial Skeleton Bone Density 1 or 2 Site (10/22/2018 9:53 AM CDT) Anatomical Region Laterality Modality Body N/A Radiographic Keisha ging 10/23/2018 9:13 AM CDT Narrative 10/23/2018 9:15 AM CDT Patient Name: HEATH JOHNSTON Robles Ordering Dr: Isma Jeffries MD D.O.B: 1940 Exam Date: 10/22/18 0953 Age: 78 Sex: Female MR#: [id number] Loc: RADIOLOGY REPORT Order #[id number] Bone Density Bone Density Hip/Spine (STD) Signed EXAM DESCRIPTION: Bone Density Hip/Spine (STD) REASON FOR STUDY: 78-year-old post-menopausal female, screening for osteoporosis. 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 AB: Report ID: [id number] Reading Location: [id number] REPORT ELECTRONICALLY SIGNED IN OTHER VENDOR SYSTEM Resulting Agency Comment O Procedure Note Ru Walker MD - 10/23/2018 Patient Name: HEATH JOHNSTON Dr: Isma Jeffries MD D.O.B: 1940 Exam Date: 10/22/18 0953 Age: 78 Sex: Female MR#: [id number] Loc: RADIOLOGY REPORT Order #[id number] Bone Density Bone Density Hip/Spine (STD) Signed EXAM DESCRIPTION: Bone Density Hip/Spine (STD) REASON FOR STUDY: 78-year-old post-menopausal female, screening for osteoporosis. 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 AB: Report ID: [id number] Reading Location: [id number] REPORT ELECTRONICALLY SIGNED IN OTHER VENDOR SYSTEM Isma Jeffries MD IMG DXA PROCEDURES Final Resu lt from Last 3 Months or Most Recently Relevant to Health Maintenance Insurance [facility] Address: [id number] [place] [phone] [facility] MEDIC[facility]AGE [facility] Address: [address] [address] [place] [address] Care Teams Director Of Scout Work Relationship Specialty Start Date End Date Antonietta Gómez MD [address] [place] [id number] PCP - General Internal Medicine 12/13/24
== END 2025-02-28 14:19 | disposition home or self-care (01) ==
LOC: ANHFOHIMG 14:20
PROVIDERS: PCP Family Medicine
DX: M85.89 Other specified disorders of bone density and structure, multiple sites (principal); Z78.0 Asymptomatic menopausal state; Z13.820 Encounter for screening for osteoporosis
CPT/HCPCS: 77080

== ENCOUNTER 2025-03-20 12:14 | Outpatient (CLI) | payer MEDICARE, SELFPAY ==
--- NOTE | ~2025-03-20 | XR_ITS ---
EXAMINATION: XR chest 2V, 03/20/2025 12:35 PATIENT FINANCIAL REPRESENTATIVE HISTORY: R09.89 - Other specified symptoms and signs involving the... COMPARISON: No comparisons available. Technique: 2 views obtained. Findings: The lungs are clear, no effusion. No pneumothorax. Heart is normal size. Mediastinal and hilar contours are within normal limits. Bony thorax no acute abnormality. Impression: No acute cardiopulmonary abnormality. Reviewed, dictated and finalized at location P. ENT FINANCIAL REPRESENTATIVE Impression: No acute cardiopulmonary abnormality.
--- OUTSIDE RECORDS SUMMARY | 2025-03-20 13:35 | XMS_ITS | Clinical Summary ---
Author Organization [facility] Address [address] [place] [address] Care Team Providers Care Emergency Management Consultant Name Role Phone Anais Gaston MD Primary Care Provider + Source Comments [facility],non-owned Affiliates and Associated Physician Practices is amultiple site organization consisting of ambulatory clinics and hospital sitesin [place], [place], [place] and [place]. This disclosure is being madepursuant to the Care Everywhere program and may not contain all information available regarding this patient. Last updated 18.[facility] Allergies No known active allergies Medications * Be aware that medications may not be up to date on this document. Alwaysverify current medications with the patient. ergocalciferol (DRISDOL) 1.25 MG (82764 UT) capsule Take 50,000 Units by mouth every 7 days 07/17/2020 Active Metz-3 Fatty Acids (OMEGA-3 2100) 1050 MG Take [...] 500 mg by mouth once daily Active glucosamine-cho ndroitin (GLUCOSAMINE CHONDR COMPLEX) 500-400 MG capsule Take [...] drink = 0.6 oz pur e alcohol) Comments Unknown Sex and Gender Information Value Date Recorded Sex Assigned at Not on file Legal Sex Female 5:00 PM CDT Gender Identity Not on file Sexual Orientation Not on file Last Filed Vital Signs Vital Sign Reading Time Taken Comments Blood Pressure 124/67 12/25/2020 1:00 PM CDT Pulse 86 12/25/2020 1:00 PM CDT Temperature - - Respiratory Rate - - Oxygen Saturation - - Inhaled Oxygen Concentration - - Weight 71.2 kg (157 lb) 12/25/2020 1:00 PM CDT Height 160 cm (5' 3) 12/25/2020 1:00 PM CDT Body Mass Index 27.81 12/25/2020 1:00 PM CDT Plan of Treatment Health Maintenance Due Date Last Done Comments BONE DENSITY TESTING 1940 DTAP/TDAP/TD VACCINES (1 - Tdap) 1960 PNEUMOCOCCAL VACCINE 50+ (1 of 1 - PCV) 08/15/1991 ZOSTER VACCINE (1 of 2) 08/15/1991 Respiratory Syncytial Virus (RSV) Vaccine Pt: or over 60 yrs (1 - 1-dose 75+ series) 2016 DEPRESSION SCREENING 05/18/2024 COVID-19 VACCINE (1 - 2023-2 5 season) 2025 INFLUENZA VACCINE (#1) 2025 8, 04/01/2017 HEPATITIS B VACCINE Aged Out No longe r eligible based on patient's age to complete this topic HIB VACCINE Aged Out No longer eligi ble based on patient's age to complete this topic HPV VACCINE Aged Out No longer eligi ble based on patient's age to complete this topic MENINGOCOCCAL (Group B) VACCINE SHARED DECISION-MAKING Aged Out No longer eligible based on patient's age to complete this topic MENINGOCOCCAL GROUPS A/C/Y/W VACCINE Aged Out No longer eligible b ased on patient's age to complete this topic Insurance [facility] [place] [address] Care Teams Emergency Management Consultant Relationship Specialty Start Date End Date Anais Gaston MD [address] [place] [address] [facility] - General 11/13/20
--- OUTSIDE RECORDS SUMMARY | 2025-03-20 13:35 | XMS_ITS | Clinical Summary ---
Author Organization [facility] Address [address] [place] [address] Care Team Providers Care Data Management Consultant Name Role Phone Antonietta Gómez MD Primary Care Provider Allergies No known active allergies Medications atorvastatin (LIPITOR) 20 mg tablet Take 0.5 tablets (10 mg total) by mouth daily 1 08/10/2018 Active jjaho-2-ycc-epa -dpa-fish oil 1,050-1,200 mg capsule Take 1 capsule by mouth daily Active nji-A2-rce33-zi xu-tnd-xmny-bor 600 mg calcium- 800 unit-50 mg tablet [...] daily Active glucosamine/cho ndroitin/C/Tim (glucosamine-ch ondroit-vit C-Mn) 498-655-17-5 mg tablet Take 1 tablet by mouth [...] tremor. 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 No evidence of depression on GDS; No evidence of depression on HADS. Mild evidence of anxiety on HADS. No evidence of daytime drowsiness on [place] scale. No evidence of REM Behavior Disorder [...] head tremor is better. This encounter's total begq-bo-cilz time was greater than 30 minutes. 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 AB: Report ID: [id number] Reading Location: [id number] REPORT ELECTRONICALLY SIGNED IN OTHER VENDOR SYSTEM Resulting Agency Comment O Procedure Note Ru Walker MD - 10/23/2018 Patient Name: HEATH JOHNSTON Dr: Isma Jeffries MD D.O.B: 1940 Exam Date: 10/22/[birth year]53 Age: 78 Sex: Female MR#: [id number] Loc: RADIOLOGY REPORT Order #[id number] Bone Density Bone Density Hip/Spine (STD) Signed EXAM DESCRIPTION: Bone Density Hip/Spine (STD) REASON FOR STUDY: 78-year-old post-menopausal female, screening for osteoporosis. Account Services Specialist/Model: Kony A (S/N [id number]) CLINICAL INFORMATION: Current height: 62 inches Maximum [...] by Ru Walker M.D. AB: Report ID: [id number] Reading Location: [id number] REPORT ELECTRONICALLY SIGNED IN OTHER VENDOR SYSTEM Isma Jeffries MD IMG DXA PROCEDURES Final Resu lt from Last 3 Months or Most Recently Relevant to Health Maintenance Insurance [facility] Address: [address] [address] [place] [address] [employer] MEDICARE ADVANTAGE [facility] Address: [address] [address] [place] [address] [address] [phone] Care Teams Data Management Consultant Relationship Specialty Start Date End Date Antonietta Gómez MD NPI: [id number] [place] [id number] PCP - General Internal Medicine 12/13/24
== END 2025-03-20 12:15 | disposition home or self-care (01) ==
PROVIDERS: PCP Family Medicine; Visit Provider Family Medicine
DX: R09.89 Other specified symptoms and signs involving the circulatory and respiratory systems (principal)
CPT/HCPCS: 71046

== ENCOUNTER 2025-04-28 15:23 | Outpatient (CLI) | payer MEDICARE, SELFPAY ==
--- NOTE | ~2025-04-28 | CT_ITS ---
EXAMINATION: CT abdomen pelvis wo con DATE: 04/28/2025 15:55 INDICATION: Right-sided flank pain TECHNIQUE: Computed tomography (CT) of the abdomen and pelvis was performed without intravenous contrast. Automated exposure control and iterative reconstruction technique were employed. The dose-length product was 191.48 mGy-cm. COMPARISON: None FINDINGS: Mild discoid atelectasis at the lingula and right middle lobe. Heart size is normal. No pericardial or pleural effusion. 8 mm hepatic cyst. There are couple calcified gallstones in the dependent aspect of the normal gallbladder. Spleen, pancreas and bilateral adrenal glands are normal. 1 mm stone in the distalmost right ureter with mild right hydronephrosis. There is an additional 1 mm stone in upper pole calyx of the right kidney. 8 mm cyst at the lower pole of the left kidney.. Bowels including the appendix are normal. Bladder, uterus and bilateral adnexa are unremarkable. No free intraperitoneal gas or fluid. No pathologically enlarged abdominal or pelvic lymphadenopathy. 35 degrees thoracolumbar dextroscoliosis with severe spondylosis. IMPRESSION: 1. Right nephrolithiasis with obstructing 1 mm stone at the distalmost right ureter with mild right hydronephrosis. 2. Cholelithiasis. Reviewed, dictated and finalized at location A. MET MAN IMPRESSION: 1. Right nephrolithiasis with obstructing 1 mm stone at the distalmost right ur eter with mild right hydronephrosis. 2. Cholelithiasis.
[2025-04-28 16:12] LABS: Hematocrit 38.9 % (37.0-47.0); Hemoglobin 12.6 g/dL (12.0-15.0); Immature Granulocyte Percent A 0.6 % (0-0.5); Lymphocytes Absolute Auto 1.12 K/mm3 (0.9-3.2); Mean Corpuscular HGB Conc 32.4 g/dl (32-36); Mean Corpuscular Hemoglobin 30.9 pg (26-34); Mean Corpuscular Volume 95.3 fl (80-100); Nucleated Red Blood Cells Absolute Auto 0.000 K/mm3 (0.0-0.012); Nucleated Red Blood Cells Perc 0.0 % (0.0-0.2); Platelet Count Result 169 k/mm3 (150-375); Red Blood Count 4.08 M/mm3 (4.2-5.4); White Blood Count 6.3 K/mm3 (4.5-10.0)
[2025-04-28 17:20] LABS: Alanine Aminotransferase 20 U/L (6-35); Albumin Level 4.4 g/dL (3.5-5.1); Alkaline Phosphatase 88 U/L (38-126); Anion Gap 6 mmol/L (4-12); Aspartate Amino Transferase 31 U/L (14-36); Bilirubin,Total 0.8 mg/dL (0.2-1.3); Blood Urea Nitrogen 20 mg/dL (7-17); Calcium 9.9 mg/dL (8.4-10.2); Carbon Dioxide 26 mmol/L (22-30); Chloride 104 mmol/L (98-107); Cholesterol 146 mg/dL (0-200); Estimated Glomerular Filt Rate > 60; Glucose 95 mg/dL (65-110); HDL Direct 52 mg/dL; Potassium 4.4 mmol/L (3.4-5.0); Sodium 136 mmol/L (137-145); Total Protein 7.4 g/dL (6.3-8.2); Triglycerides 79 mg/dL (<150)
== END 2025-04-28 15:24 | disposition home or self-care (01) ==
PROVIDERS: Student in an Organized Health Care Education/Training Program; PCP Family Medicine; Visit Provider Physician Assistant
DX: N13.2 Hydronephrosis with renal and ureteral calculous obstruction (principal); K80.20 Calculus of gallbladder without cholecystitis without obstruction; E78.5 Hyperlipidemia, unspecified; I10 Essential (primary) hypertension
CPT/HCPCS: 36415; 74176; 80053; 80061; 85025